=== PATIENT | male | born 2000 ===

== ENCOUNTER 2020-12-31 13:51 | Emergency (ER) | payer OTHER, SELFPAY ==
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
[2020-12-31 14:01] VITALS: BP 139/71; PULSE 89; RESP 18; TEMP 36.3; O2SAT 98; BMI 23.1
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
== END 2020-12-31 16:23 | disposition home or self-care (01) ==
PROVIDERS: Emergency Provider Emergency Medicine
DX: S06.0X0A Concussion without loss of consciousness, initial encounter (principal); V43.62XA Car passenger injured in collision with other type car in traffic accident, initial encounter; G44.319 Acute post-traumatic headache, not intractable; Y93.9 Activity, unspecified; Y92.414 Local residential or business street as the place of occurrence of the external cause; Y99.9 Unspecified external cause status
CPT/HCPCS: 70450; 72125; 99283; 99284

== ENCOUNTER 2022-02-12 16:56 | Emergency (ER) | payer OTHER, SELFPAY ==
--- NOTE | ~2022-02-12 | XR_ITS ---
EXAMINATION: XR SHOULDER, LEFT CLINICAL INFORMATION: Pain. Injury. COMPARISON: None TECHNIQUE: AP external rotated, Grashey, transscapular radiographs of the left shoulder. FINDINGS: Glenohumeral and acromioclavicular joint spacing and alignment are normal in appearance. No dystrophic calcifications or arthropathic changes visualized. The visualized left ribs and lung are normal in appearance. XR/XR shoulder LT min 2V IMPRESSION: Normal radiographs of the left shoulder.
[2022-02-12 17:11] VITALS: BP 153/89; PULSE 79; RESP 18; TEMP 36.6; O2SAT 98; BMI 26.2
--- NOTE | 2022-02-12 18:39 | ED.GENADULT ---
HPI - General Adult General Chief complaint: General Medical Stated complaint: pain in both arms Time Seen by Provider: 02/12/22 18:30 Source: patient Mode of arrival: ambulatory Limitations: no limitations History of Present Illness HPI narrative: 21 yo male healthy here with left shoulder pain x 2 weeks worsened with activity at the gym and today with lifting up his nephew. Pain radiates down the left arm with activity. no numbness, tingling, weakness, fevers, chills. No neck pain or back pain. Patient using a NSAID at home with improvement Patient reports also some right shoulder achiness today after some activity. Tells me he took a tramadol prior to arrival and his pain is is resolved Related Data Previous Rx's Medication Instructions Recorded acetaminophen 300 mg-codeine 30 mg 1 tab PO Q8H PRN #10 tab 12/31/20 tablet cyclobenzaprine 10 mg tablet 10 mg PO TID PRN #14 tab 02/12/22 naproxen 500 mg tablet 500 mg PO BID PRN #30 tab 02/12/22 Allergies Allergy/AdvReac Type Severity Reaction Status Date / Time No Known Allergies Allergy Verified 02/12/22 17:11 [No Known Allergies*] Review of Systems Review of Systems: Yes all other systems are reviewed and are negative Constitutional: Constitutional: Reports no additional constitutional complaints, Denies body ache(s), Denies chills, Denies fever(s), Denies headache(s) and Denies weakness Eyes: Eyes: Reports no additional eye complaints and Denies change in vision ENT: Reports system reviewed and no additional complaints, except as documented, Denies dizziness, Denies headache(s), Denies nasal congestion, Denies nasal discharge and Denies neck pain Cardiovascular: Cardiovascular: Reports no additional cardiovascular complaints, Denies chest pain, Denies leg edema and Denies dyspnea Respiratory: Respiratory: Reports no additional respiratory complaints, Denies cough and Denies dyspnea Gastrointestinal: Gastrointestinal: Reports no additional gastrointestinal complaints, Denies abdominal pain, Denies diarrhea, Denies nausea and Denies vomiting Genitourinary: Genitourinary: Denies urinary incontinence Musculoskeletal: Musculoskeletal: Reports no additional musculoskeletal complaints, Denies back pain, Reports arthralgias, Denies joint swelling, Denies neck pain, Denies numbness and Denies tingling Integumentary/Breasts: Skin/Breast: Reports system reviewed and no additional complaints, except as docu and Denies rash Neurologic: Reports system reviewed and no additional complaints, except as documented, Denies dizziness, Denies headache(s), Denies numbness, Denies tingling and Denies weakness PMFSH Past Medical History Attestation statement: The following information was validated with the patient. Source: old records reviewed and nursing notes reviewed Medical History No known health problems Social History Social History Advance Directives: No Advance Directives Information Provided: Yes Physical Exam ED Vital Signs: Vital Signs - 24 hr 02/12/22 17:11 Temperature 98 F Pulse Rate 79 Respiratory Rate 18 Blood Pressure 153/89 H Pulse Oximetry 98 BMI result Body Mass Index 26.2 Const General: cooperative, healthy appearing, comfortable and no acute distress Orientation/consciousness: patient oriented x3 Limitations: no limitations HENMT Head: Yes normal to inspection Ears: hearing grossly normal bilaterally General nose exam: Normal external nose present Face and sinus: Yes normal facial exam Mouth: Normal oral and palatal mucosa present Throat: Yes posterior oropharynx normal Eyes General: appearance normal, both eyes and all related structures Pupils: Equal, round and reactive pupils present Neck Neck: Yes normal visual inspection and Yes full ROM Chest Chest palpation & inspection: normal inspection of the chest Resp Effort & Inspection: normal respiratory effort Cardio Peripheral pulses: Peripheral pulses 2+ throughout Back/Spine/Pelvis Thoracic/Lumbar Spine: thoracic and lumbar spine normal to inspection Skin General skin exam: no rashes or lesions noted Neuro General: patient oriented x3 and moves all extremities Cranial nerves: Yes Equal, round and reactive pupils present Cognition (Neuro): normal cognition Gait exam (Neuro): Normal gait present Motor exam (neuro): 5/5 motor strength present throughout Sensory Exam: Normal double simultaneous stimulation for sensation Extrem Other: Unable to elicit any pain on exam of the left or right shoulder Full range of motion No weakness Neurovascular intact distally of both extremities Course Course Course Narrative: Left shoulder pain for 2 weeks with no known injury or trauma. Will check x-rays Reevaluation(s) Reevaluation #1: X-ray show no bony abnormality. Likely strain. Recommend rice. Will start low-dose NSAID and muscle relaxant for the next few days. Reviewed worrisome signs and symptoms of when to return to the emergency department. Comfortable discharge home. Time: 21:40 Medical Decision Making MDM Narrative Medical decision making narrative: Sprain, strain Medical Records Medical records reviewed: Yes I reviewed the patient's medical records. Lab Data Lab results reviewed: Yes I reviewed the patient's lab results. Imaging Data shoulder x-ray: Attestation: I personally reviewed and interpreted this imaging study as follows: Radiologist's impression: [address] [address] XRay Report Signed Patient: Blu Soria MR#: [id number] : 2000 Acct:[id number] Age/Sex: 21 / M ADM Date: 02/12/22 Loc: HO.ED Attending Dr: Ordering Physician: June Aguilar NP Date of Service: 02/12/22 Procedure(s): XR shoulder LT min 2V Accession Number(s): [id number] cc: June Aguilar NP~ EXAMINATION: XR SHOULDER, LEFT CLINICAL INFORMATION: Pain. Injury.? COMPARISON: None? TECHNIQUE: AP external rotated, Grashey, transscapular radiographs of the left shoulder. FINDINGS: Glenohumeral and acromioclavicular joint spacing and alignment are normal in appearance. No dystrophic calcifications or arthropathic changes visualized. The visualized left ribs and lung are normal in appearance. XR/XR shoulder LT min 2V IMPRESSION: Normal radiographs of the left shoulder. Discharge Plan Discharge Clinical Impression: Muscle strain of left shoulder region Patient Disposition: Home, Self-Care Instructions: Muscle Strain (DC) Additional Instructions: X-ray show no bony abnormalities. Heat or ice the area Gentle stretching No heavy lifting or bending Follow-up with orthopedics in 7 days for persistent symptoms Prescriptions: New cyclobenzaprine 10 mg tablet 10 mg PO TID PRN (Reason: muscle spasm) Qty: 14 0RF naproxen 500 mg tablet 500 mg PO BID PRN (Reason: pain) Qty: 30 0RF No Action acetaminophen-codeine 300-30 mg tablet 1 tab PO Q8H PRN (Reason: pain) Qty: 10 0RF Referrals: [facility] [place] [facility] Sur[facility] [Provider Group] - 1 week (for persistent symptoms )
== END 2022-02-12 22:29 | disposition home or self-care (01) ==
PROVIDERS: Emergency Provider Internal Medicine
DX: S46.912A Strain of unspecified muscle, fascia and tendon at shoulder and upper arm level, left arm, initial encounter (principal); X50.9XXA Other and unspecified overexertion or strenuous movements or postures, initial encounter; Y93.9 Activity, unspecified; Y92.9 Unspecified place or not applicable; Y99.9 Unspecified external cause status
CPT/HCPCS: 73030; 99283

== ENCOUNTER 2023-05-05 09:47 | Emergency (ER) | payer OTHER, SELFPAY ==
[2023-05-05 10:13] VITALS: BP 173/90; PULSE 84; RESP 16; TEMP 36.4; O2SAT 100; BMI 26.2
[2023-05-05 11:14] LABS: COVID-19 Test Negative (Negative); IDNOW Serial# 08D9AD1C
[2023-05-05 11:20] LABS: IDNOW Serial# 08D9AD1C; Strep A Nucleic Acid Negative (Negative)
--- NOTE | 2023-05-05 11:35 | ED_ITS ---
HPI - General Adult General Chief complaint: General Medical Stated complaint: throat pain Time Seen by Provider: 05/05/23 10:41 Source: patient Mode of arrival: ambulatory Limitations: no limitations History of Present Illness HPI narrative: 22 year old male w/ no significant pmhx presents to the ED today w/ complaints of throat pain x 4 days. He also endorses fever (although never took it), chills, headache, painful tongue bumps, swollen painful tonsils, body aches, and sensitive skin to touch. He states that he had a negative COVID test on Sunday. He denies any recent sick contacts, travel, abdominal pain, nausea, vomiting, sinus pain, ear pain, vision or hearing changes, diarrhea, or urinary changes. He has taken Motrin w/ minimal relief. Denies the use of any OTC cold/flu medications. Onset (ago): day(s) (4) Location: mouth Pain Consistency: constant Relieving factors: none Exacerbating factors: eating Treatments prior to arrival: NSAID Related Data Previous Rx's Medication Instructions Recorded acetaminophen 300 mg-codeine 30 mg 1 tab PO Q8H PRN pain #10 tabs 12/31/20 tablet cyclobenzaprine 10 mg tablet 10 mg PO TID PRN muscle spasm #14 02/12/22 tabs naproxen 500 mg tablet 500 mg PO BID PRN pain #30 tabs 02/12/22 amoxicillin 875 mg-potassium 1 tab PO BID #20 tabs 05/05/23 clavulanate 125 mg tablet Allergies Allergy/AdvReac Type Severity Reaction Status Date / Time No Known Allergies Allergy Verified 05/05/23 10:12 [No Known Allergies*] Review of Systems Review of Systems: Yes all other systems are reviewed and are negative PMFSH Past Medical History Medical History No known health problems Social History Social History Alcohol intake: current Alcohol intake frequency: a few times a month Smoked in Last 30 Days: No Use of substances other than those prescribed or required for medical reasons: No Advance Directives: No Advance Directives Information Provided: No Physical Exam ED Vital Signs: Vital Signs - 24 hr 05/05/23 10:13 05/05/23 11:59 Temperature 97.5 F 99.0 F Pulse Rate 84 84 Respiratory Rate 16 16 Blood Pressure 173/90 H 140/92 H Pulse Oximetry 100 99 Oxygen Delivery Method Room Air Room Air BMI result Body Mass Index 26.2 Const Other: Appearance: Alert. Oriented X3. No acute distress. Head: normocephalic, atraumatic. Eyes: Pupils equal, round and reactive to light. ENT: (+) tonsilar swelling, erythema, and exudate. Uvula midline, normal voice. Raised lesions on tongue. TM's normal bilaterally. Neck: Enlarged/tender submandibular lymphadenopathy. Neck supple. CVS: Normal heart rate and rhythm. Pulses normal. Respiratory: No respiratory distress. Breath sounds normal. Abdomen: Soft and nontender. +BS x4 Skin: Skin warm and dry. Normal skin color. Normal skin turgor. No rashes. Extremities: No lower extremity edema. No joint swelling. Neuro/psych: Oriented X 3. No motor deficit. No sensory deficit. CN II-XII intact. Normal speech and cognition. Medications Administered Discontinued Medications Generic Name Dose Route Start Last Admin Trade Name Freq PRN Reason Stop Dose Admin Acetaminophen 975 mg 05/05/23 12:02 05/05/23 12:12 Acetaminophen 325 Mg Tablet PO 05/05/23 12:03 975 mg ONCE ONE Administration Benzocaine 1 lozenge 05/05/23 12:02 05/05/23 12:13 Throat Lozenge, Medicated Lozenge MUCOUS MEM 05/05/23 12:03 1 lozenge ONCE ONE Administration Dexamethasone 10 mg 05/05/23 12:02 05/05/23 12:12 Dexamethasone 2 Mg Tablet PO 05/05/23 12:03 10 mg ONCE ONE Administration Ibuprofen 600 mg 05/05/23 12:02 05/05/23 12:12 Ibuprofen 600 Mg Tablet PO 05/05/23 12:03 600 mg ONCE ONE Administration Lidocaine/Diphenhydr/Alum/Mg/Simeth 10 ml 05/05/23 12:02 05/05/23 12:12 Mag&Al/Sim/Diphenhyd/Lidocaine 10 Ml Oral.Susp PO 05/05/23 12:03 10 ml ONCE ONE Administration Protocol Medical Decision Making Medical Decision Making MDM Narrative: 22 year old male w/ no significant pmhx presents to the ED today w/ complaints of throat pain x 4 days. On exam he is hypertensive secondary to his pain/discomfort, NAD, no red flag symptoms (drooling, hot potato voice, tripod positioning), no signs of trauma or injury. Likely, infectious mononucleosis vs. strep throat. Unlikely, peritonsilar abscess, retropharyngeal abscess, thrush, COVID, or epiglottitis. Plan: COVID, Strep throat swabs, labs, Antibiotics if infectious in nature, Tylenol/NSAIDs, steroids, magic mouthwash, supportive care, f/u w/ PCP Differential Diagnosis Differential Diagnoses: The differential diagnosis associated with the presentation includes peritonsilar abscess, Strep throat, thrush, COVID, or epiglottitis. Lab Data MDM Lab Attestation statement: I reviewed the patient's lab results. No leukocytosis, negative mononucleosis 05/05/23 11:56 05/05/23 11:56 Labs: Lab Results 05/05/23 05/05/23 05/05/23 Range/Units 10:47 11:04 11:56 WBC (4.8-10.8) X10*3/uL RBC (4.60-5.80) X10*6/uL Hgb (14.0-18.0) g/dl Hct (42.0-52.0) % MCV (80.0-98.0) fL MCH (27.0-33.0) pg MCHC (31.0-36.0) g/dl RDW (11.0-16.0) % Plt Count (160-400) X10*3/uL MPV (9.4-12.4) fL Immature Gran % (Auto) (0.0-0.4) % Neut % (Auto) (45-73) % Lymph % (Auto) (20-40) % [place] % (Auto) (2-11) % Eos % (Auto) (0-4) % Baso % (Auto) (0-2) % Lymph # (Auto) (1.2-4.9) X10*3/uL [place] # (Auto) (0.1-1.2) X10*3/uL Eos # (Auto) (0.0-0.4) X10*3/uL Baso # (Auto) (0.0-0.2) X10*3/uL Abs Immat Gran (auto) (0.00-0.03) X10*3/uL Absolute Neuts (auto) (2.0-8.3) x10*3/uL Absolute Nucleated RBC (0.0-0.012) X10*3/uL Nucleated RBC % (auto) (0.0-0.2) /100WBC Sodium (135-145) mmol/L Potassium (3.3-5.1) mmol/L Chloride (96-108) mmol/L Carbon Dioxide (22-29) mmol/L Anion Gap (12-20) BUN (9-16) mg/dL Creatinine (0.5-1.4) mg/dL Estim Creat Clear Calc Estimated GFR Random Glucose (60-115) mg/dL Calcium (8.4-10.2) mg/dL COVID-19 ([place]) Negative (Negative) COVID-19 Clin Com See Note Monoscreen Negative (Negative) S. pyogenes GrpA TEJAL Negative (Negative) 05/05/23 05/05/23 Range/Units 11:56 11:56 WBC 10.2 (4.8-10.8) X10*3/uL RBC 5.39 (4.60-5.80) X10*6/uL Hgb 16.8 (14.0-18.0) g/dl Hct 47.7 (42.0-52.0) % MCV 88.5 (80.0-98.0) fL MCH 31.2 (27.0-33.0) pg MCHC 35.2 (31.0-36.0) g/dl RDW 12.1 (11.0-16.0) % Plt Count 143 L (160-400) X10*3/uL MPV 10.7 (9.4-12.4) fL Immature Gran % (Auto) 0.4 (0.0-0.4) % Neut % (Auto) 66.8 (45-73) % Lymph % (Auto) 19.6 L (20-40) % [place] % (Auto) 12.1 H (2-11) % Eos % (Auto) 0.9 (0-4) % Baso % (Auto) 0.2 (0-2) % Lymph # (Auto) 2.0 (1.2-4.9) X10*3/uL [place] # (Auto) 1.2 (0.1-1.2) X10*3/uL Eos # (Auto) 0.1 (0.0-0.4) X10*3/uL Baso # (Auto) 0.0 (0.0-0.2) X10*3/uL Abs Immat Gran (auto) 0.04 H (0.00-0.03) X10*3/uL Absolute Neuts (auto) 6.8 (2.0-8.3) x10*3/uL Absolute Nucleated RBC 0.000 (0.0-0.012) X10*3/uL Nucleated RBC % (auto) 0.0 (0.0-0.2) /100WBC Sodium 138 (135-145) mmol/L Potassium 4.3 (3.3-5.1) mmol/L Chloride 102 (96-108) mmol/L Carbon Dioxide 27 (22-29) mmol/L Anion Gap 13 (12-20) BUN 10 (9-16) mg/dL Creatinine 1.03 (0.5-1.4) mg/dL Estim Creat Clear Calc 133.3 Estimated GFR > 60 Random Glucose 94 (60-115) mg/dL Calcium 9.5 (8.4-10.2) mg/dL COVID-19 ([place]) (Negative) COVID-19 Clin Com Monoscreen (Negative) S. pyogenes GrpA TEJAL (Negative) Tests considered The following testing was considered but not selected: CT scan of the neck but given the bilateral involvement, and lack of uvula deviation unlikely bilateral peritonsilar abscess. Will defer for now. Prescription Management I considered prescription management with: Pain Medication, Antibiotic and Other (steroids) Critical Care Time Critical Care Time Critical Care Time: No Discharge Plan Discharge Clinical Impression: Pharyngitis Patient Disposition: Home, Self-Care Instructions: Pharyngitis (ED) Additional Instructions: Your lab workup was unremarkable. You tested negative for strep throat, COVID, and mononucleosis. Given your examination and symptoms we are treating you for strep throat. Take the prescribed antibiotics as directed, complete the entire course and do not miss any doses Recommend warm saltwater gargles 3 times per day. Recommend [id number] Chloraseptic spray or Cepacol lozenges for sore throat Take Motrin and Tylenol around the clock If you develop new or worsening symptoms call 911 or come back to the ER for further evaluation. Prescriptions: New amoxicillin-pot clavulanate 875-125 mg tablet 1 tab PO BID Qty: 20 0RF No Action acetaminophen-codeine 300-30 mg tablet 1 tab PO Q8H PRN (Reason: pain) Qty: 10 0RF cyclobenzaprine 10 mg tablet 10 mg PO TID PRN (Reason: muscle spasm) Qty: 14 0RF naproxen 500 mg tablet 500 mg PO BID PRN (Reason: pain) Qty: 30 0RF Stand Alone Forms: Work/School Release Discharge Date/Time: 05/05/23 13:33
[2023-05-05 11:59] VITALS: BP 140/92; PULSE 84; RESP 16; TEMP 37.2; O2SAT 99
[2023-05-05 12:00] LABS: MANUAL DIFF FLAG NO
[2023-05-05 12:04] LABS: Basophils Percent Auto 0.2 % (0-2); Eosinophils Absolute Auto 0.1 X10*3/uL (0.0-0.4); Eosinophils Percent Auto 0.9 % (0-4); Hematocrit 47.7 % (42.0-52.0); Hemoglobin 16.8 g/dl (14.0-18.0); Imm Gran Abs Auto 0.04 X10*3/uL (0.00-0.03); Imm Gran Pct Auto 0.4 % (0.0-0.4); Lymphocytes Percent Auto 19.6 % (20-40); Mean Corpuscular HGB Conc 35.2 g/dl (31.0-36.0); Mean Corpuscular Hemoglobin 31.2 pg (27.0-33.0); Mean Corpuscular Volume 88.5 fL (80.0-98.0); Mean Platelet Volume 10.7 fL (9.4-12.4); Monocytes Absolute Auto 1.2 X10*3/uL (0.1-1.2); Monocytes Percent Auto 12.1 % (2-11); Neutrophils Absolute Auto 6.8 x10*3/uL (2.0-8.3); Neutrophils Percent Auto 66.8 % (45-73); Platelet Count 143 X10*3/uL (160-400); Red Blood Count 5.39 X10*6/uL (4.60-5.80); Red Cell Distribution Width 12.1 % (11.0-16.0); White Blood Count 10.2 X10*3/uL (4.8-10.8)
[2023-05-05] MEDS: Mag&Al/Sim/Diphenhyd/Lidocaine 10 ML ORAL.SUSP PO (12:12)
[2023-05-05] MEDS: Acetaminophen 325 MG TABLET 975 MG PO (12:12)
[2023-05-05] MEDS: Ibuprofen 600 MG TABLET PO (12:12)
[2023-05-05] MEDS: dexAMETHasone 2 MG TABLET 10 MG PO (12:12)
[2023-05-05] MEDS: Throat Lozenge, Medicated LOZENGE 1 LOZENGE MUCOUS MEM (12:13)
[2023-05-05 12:19] LABS: Anion Gap 13 (12-20); Blood Urea Nitrogen 10 mg/dL (9-16); Calcium 9.5 mg/dL (8.4-10.2); Carbon Dioxide 27 mmol/L (22-29); Chloride 102 mmol/L (96-108); Creatinine Clr Calc Pharmacy 133.3; Estimated Glomerular Filt Rate > 60; Glucose Random 94 mg/dL (60-115); Potassium 4.3 mmol/L (3.3-5.1); Sodium 138 mmol/L (135-145)
[2023-05-05 12:28] LABS: Monotest Negative (Negative)
--- NOTE | 2023-05-05 12:38 | PC.NURSE ---
resting in bed w/no respiratory distress. airway intact.
--- NOTE | 2023-05-05 13:29 | MHC.EDTECH ---
Brought patient a pillow.
== END 2023-05-05 13:33 | disposition home or self-care (01) ==
PROVIDERS: Physician Assistant; Emergency Provider Emergency Medicine Emergency Medical Services
DX: J02.9 Acute pharyngitis, unspecified (principal); R50.9 Fever, unspecified; Z20.822 Contact with and (suspected) exposure to COVID-19
CPT/HCPCS: 36415; 80048; 85025; 86308; 87635; 87651; 99283; 99284; J8540

== ENCOUNTER 2024-07-22 10:35 | Inpatient (IN) | payer OTHER, SELFPAY ==
[2024-07-22] VITALS (11 sets, daily range): BP systolic 123–158; BP diastolic 60–79; PULSE 88–115; RESP 12–20; TEMP 36.7–37.6; O2SAT 99–100; BMI 25.6
--- NOTE | ~2024-07-22 | CT_ITS ---
EXAMINATION: CT ABDOMEN AND PELVIS WITH AND WITHOUT CONTRAST: CT GI BLEEDING STUDY CLINICAL INFORMATION: anemia, brbpr, diarrhea, N/V. COMPARISON: None available TECHNIQUE: Multidetector volumetric imaging was performed from the lung bases to the pubic symphysis before and after the administration of: Intravenous contrast: 85 mL Omnipaque 350 2 sets of post contrast images were performed one during the arterial phase and another after a 2 minute delay to assess for extravasation into bowel lumen No contrast reaction reported MIP coronal, sagittal and coronal reformatted images were obtained on the technologist workstation. This CT examination was performed using dose optimization techniques as appropriate, variously including the following: *Automated exposure control *Adjustment of mA and/or kV according to patient size (this includes techniques or standardized protocols for targeted exams where dose is matched to indication/reason for exam; i.e. extremities or head) *Use of iterative reconstruction technique Total exam dose-length product 1363 mGy-cm FINDINGS: STOMACH: No abnormal wall thickening or mass. No intraluminal contrast accumulation to suggest hemorrhage. SMALL BOWEL: No abnormal wall thickening or dilation. No intraluminal contrast accumulation to suggest hemorrhage. COLON: No intraluminal contrast accumulation to suggest hemorrhage. No colonic wall thickening or pericolonic inflammatory changes. Few scattered diverticula without evidence of diverticulitis. Normal appendix. LUNG BASES: No nodules, mass, or focal consolidation. PLEURA: No pleural effusion. LIVER, GALLBLADDER, AND BILIARY TREE: The liver is normal in size, shape, and attenuation. No focal hepatic lesion or biliary ductal dilatation is present. The gallbladder is unremarkable with no evidence of radiopaque gallstones, gallbladder wall thickening, or obvious pericholecystic inflammatory changes. PANCREAS: Normal; no mass or surrounding fluid. SPLEEN: Normal size. No focal lesion. ADRENAL GLANDS: Normal; no mass. KIDNEYS AND URETERS: The kidneys are normal in size, shape, and attenuation. No hydronephrosis, hydroureter, or calculi. ABDOMINAL WALL: No hernia seen. LYMPHOVASCULAR STRUCTURES: No lymphadenopathy. The aorta is normal in caliber. BLADDER: The bladder is empty but otherwise unremarkable. No bladder calculi. PELVIC VISCERA: Unremarkable. OSSEOUS STRUCTURES: No acute or suspicious osseous abnormality. CT/CT gi bleed abd pel wo/w IVcon IMPRESSION: No evidence of active gastrointestinal hemorrhage at the time of the scan. Electronically signed by: Rafael Inman MD 07/22/2024 04:00 PM EDT RP
[2024-07-22 10:55] LABS: MANUAL DIFF FLAG NO
[2024-07-22 11:08] LABS: Basophils Absolute Auto 0.1 X10*3/uL (0.0-0.2); Basophils Percent Auto 0.4 % (0-2); Eosinophils Absolute Auto 0.5 X10*3/uL (0.0-0.4); Eosinophils Percent Auto 3.3 % (0-4); Imm Gran Abs Auto 0.15 X10*3/uL (0.00-0.03); Imm Gran Pct Auto 1.1 % (0.0-0.4); Lymphocytes Absolute Auto 3.3 X10*3/uL (1.2-4.9); Lymphocytes Percent Auto 24.1 % (20-40); Mean Corpuscular HGB Conc 36.4 g/dl (31.0-36.0); Mean Corpuscular Hemoglobin 32.4 pg (27.0-33.0); Mean Corpuscular Volume 88.9 fL (80.0-98.0); Mean Platelet Volume 11.1 fL (9.4-12.4); Monocytes Absolute Auto 1.4 X10*3/uL (0.1-1.2); Monocytes Percent Auto 10.4 % (2-11); Neutrophils Absolute Auto 8.3 x10*3/uL (2.0-8.3); Neutrophils Percent Auto 60.7 % (45-73); Platelet Count 187 X10*3/uL (160-400); Red Blood Count 2.07 X10*6/uL (4.60-5.80); Red Cell Distribution Width 13.2 % (11.0-16.0); White Blood Count 13.7 X10*3/uL (4.8-10.8)
[2024-07-22 11:12] LABS: Hematocrit 18.4 % (42.0-52.0); Hemoglobin 6.7 g/dl (14.0-18.0)
[2024-07-22 11:24] LABS: Anion Gap 9 (12-20); Blood Urea Nitrogen 10 mg/dL (9-16); Calcium 8.5 mg/dL (8.4-10.2); Carbon Dioxide 26 mmol/L (22-29); Chloride 106 mmol/L (96-108); Creatinine Clr Calc Pharmacy 120.5; Estimated Glomerular Filt Rate > 60; Glucose Random 106 mg/dL (60-115); Potassium 3.6 mmol/L (3.3-5.1); Sodium 137 mmol/L (135-145)
--- NOTE | 2024-07-22 11:30 | PC.NURSE ---
patient a&ox3, vss, livestock feeder applied, nsr on monitor, iv inserted, labs previously drawn in triage, pt to go to ct scan, pt denying pain/discomfort, provider to perform rectal exam. family at bedside, will continue to monitor.
--- NOTE | 2024-07-22 11:42 | ED_ITS ---
HPI - General Adult General Chief complaint: Nausea/Vomiting/Diarrhea Stated complaint: Vomiting, diarrhea Time Seen by Provider: 07/22/24 11:41 Source: patient Mode of arrival: ambulatory Limitations: no limitations History of Present Illness ED Provider: Dr. Bert Cho HPI narrative: 24-year-old male with no significant past medical history on no medications, takes no [id number] medications, presents emergency department for evaluation of bloody diarrhea, weakness, lightheadedness and dizziness. The patient states that on Sunday night (07/18/2024) at around 22:00 hours he purchased bread sticks from [employer] he states that the bread sticks were raw your for he put them in the abdomen and cook them. Then at 02:00 hours on Sunday (07/17/2025) he developed severe diarrhea. He states that he had over 20 episodes of bloody stools. He states that his stools have not come back to normal and are soft with no noticeable blood. He was moving his bowels 3 to 4 times a day. Patient states that he was feeling weak, lightheaded as if he was going to pass out. He denies any dyspnea on exertion or shortness of breath at rest. He states he was felt hot and cold but did not check his temperature. Patient was never had bloody diarrhea in the past. He denied abdominal pain. Related Data Home Medications ?Medication ?Instructions ?Recorded ?Confirmed No Known Home Meds 07/22/24 07/22/24 Allergies Allergy/AdvReac Type Severity Reaction Status Date / Time No Known Allergies Allergy Verified 07/22/24 10:43 [No Known Allergies*] Review of Systems 2 Review of Systems: Yes all other systems are reviewed and are negative [facility] [place] Past Medical History [facility] [place] [facility] Narrative: Social history: He denies tobacco, alcohol and drug use Medical History No known health problems Social History Social History Alcohol intake: current Alcohol intake frequency: a few times a month Smoked in Last 30 Days: No Use of substances other than those prescribed or required for medical reasons: No Advance Directives: No Advance Directives Information Provided: Yes Do you have a plan to hurt others: No Plan Physical Exam ED Vital Signs: Vital Signs - 24 hr 10/29/24 10:40 07/22/24 12:59 07/22/24 13:57 Temperature 99.6 F 98.1 F 98.2 F Pulse Rate 98 100 100 Respiratory Rate 16 18 12 Blood Pressure 158/79 H 137/76 130/75 Pulse Oximetry 100 99 100 Oxygen Delivery Method Room Air Room Air Room Air 07/22/24 14:21 07/22/24 14:36 Temperature 98.2 F 98.9 F Pulse Rate 115 H 99 Respiratory Rate 18 18 Blood Pressure 140/68 H 123/67 Pulse Oximetry Oxygen Delivery Method BMI result Body Mass Index 25.6 Vital signs revealed an elevated blood pressure of 158/79 otherwise unremarkable Exam: General: Awake, alert in no distress Head: Normocephalic, atraumatic EENT: PERRL, Lids normal, sclera normal, conjunctiva normal, nose normal , ears normal, throat without erythema or exudates Neck: Supple, no adenopathy Lung: breath sounds symmetric, no wheezing, rales or rhonchi Chest: symmetric movement, nontender Heart: regular rate and rhythm, normal S1, S2 no murmurs or rubs Abdomen: soft, non-tender, nondistended, normal bowel sounds Rectal: No external hemorrhoids, rectal tone was normal, no masses on digital exam, stool was dark brown and strongly Hemoccult positive Back: no vertebral tenderness, no CVAT Extremities: no deformities, moves all extremities symmetrically Neuro: Awake, alert, oriented, normal speech, cranial nerves intact, moves all extremities symmetrically Psych: Pleasant, cooperative Medications Administered Generic Name Dose Route Start Last Admin Trade Name Freq PRN Reason Stop Dose Admin Magnesium Sulfate 2 gm in 50 mls @ 25 mls/hr 07/22/24 16:39 07/22/24 17:02 Magnesium Sulfate/H2o IV 07/22/24 18:38 25 mls/hr ONCE ONE Administration Pantoprazole Sodium 40 mg 07/22/24 16:55 07/22/24 17:18 Pantoprazole Sodium 40 Mg/10 Ml Vial IVPUSH 40 mg BID@0630,1630 PABLITO Administration Discontinued Medications Generic Name Dose Route Start Last Admin Trade Name Freq PRN Reason Stop Dose Admin Iohexol 85 ml 07/22/24 13:23 07/22/24 13:23 Iohexol 350 Mg/Ml 100 Ml Infus..Btl IV 07/22/24 13:24 85 ml ONCE ONE Administration Medical Decision Making Medical Decision Making MDM Narrative: 24-year-old male with no significant past medical history who presents emergency department for evaluation of sudden onset of bloody stools 4 days prior with over 20 episodes initially and now continues to have loose stools with no blood. Patient was feeling weak, lightheaded, dizzy and had subjective fever and chills. Vital signs revealed an elevated blood pressure otherwise unremarkable. Physical exam revealed no abdominal tenderness, patient had stool which was dark brown and strongly Hemoccult positive. Differential diagnosis: ?Includes but is not limited to inflammatory bowel disease (ulcerative colitis, Crohn's disease), infectious diarrhea (bacterial, viral, parasitic), C difficile colitis Following tests were ordered: CBC, BNP, liver panel, GI panel, C difficile, magnesium, occult stool, urinalysis, CT GI bleed protocol abdomen pelvis with IV contrast Course: 12:19 My interpretation patient's laboratory evaluation as follows: Elevated white blood count 68325 with a normal differential. Anemia with an H&H of 16.7 and 18.4. Platelet count was normal 187,000. BUN and creatinine were normal 10 in 1.15. LFTs were normal. Bilirubin was normal. Total protein and albumin were low 5.6 and 3.3. Lipase was normal. 13:46 Repeat H&H was 6.4 and 17.9 at 12:28 hours confirms that the patient is anemic. Patient was ordered to get 2 units of packed red blood cells each over 1-2 hours. We will repeat H&H after transfusion. CT abdomen pelvis GI protocol is pending. I will discuss patient with on-call GI , Dr. Polk 16:18 CT scan abdomen pelvis GI protocol did not reveal any active bleeding or any other abnormalities to explain the patient's lower GI bleed. I did discuss the patient's presentation with the hospitalist, Dr. Rivera and the patient will be admitted for further treatment. Admission/Observation Consideration of admission/observation: Escalation of care including admission/observation considered (Yes) Lab Data 07/22/24 12:28 07/22/24 10:51 Labs: Lab Results 07/22/24 07/22/24 07/22/24 Range/Units 10:51 11:27 12:28 WBC 13.7 H (4.8-10.8) X10*3/uL RBC 2.07 L D (4.60-5.80) X10*6/uL Hgb 6.7 L* D 6.4 L* (14.0-18.0) g/dl Hct 18.4 L* D 17.9 L* (42.0-52.0) % MCV 88.9 (80.0-98.0) fL MCH 32.4 (27.0-33.0) pg MCHC 36.4 H (31.0-36.0) g/dl RDW 13.2 (11.0-16.0) % Plt Count 187 D (160-400) X10*3/uL MPV 11.1 (9.4-12.4) fL Immature Gran % (Auto) 1.1 H (0.0-0.4) % Neut % (Auto) 60.7 (45-73) % Lymph % (Auto) 24.1 (20-40) % [place] % (Auto) 10.4 (2-11) % Eos % (Auto) 3.3 (0-4) % Baso % (Auto) 0.4 (0-2) % Lymph # (Auto) 3.3 (1.2-4.9) X10*3/uL [place] # (Auto) 1.4 H (0.1-1.2) X10*3/uL Eos # (Auto) 0.5 H (0.0-0.4) X10*3/uL Baso # (Auto) 0.1 (0.0-0.2) X10*3/uL Abs Immat Gran (auto) 0.15 H (0.00-0.03) X10*3/uL Absolute Neuts (auto) 8.3 (2.0-8.3) x10*3/uL Absolute Nucleated RBC 0.000 (0.0-0.012) X10*3/uL Nucleated RBC % (auto) 0.0 (0.0-0.2) /100WBC Sodium 137 (135-145) mmol/L Potassium 3.6 (3.3-5.1) mmol/L Chloride 106 (96-108) mmol/L Carbon Dioxide 26 (22-29) mmol/L Anion Gap 9 L (12-20) BUN 10 (9-16) mg/dL Creatinine 1.15 (0.5-1.4) mg/dL Estim Creat Clear Calc 120.5 Estimated GFR > 60 Random Glucose 106 (60-115) mg/dL Calcium 8.5 D (8.4-10.2) mg/dL Magnesium 1.5 L (1.6-2.6) mg/dL Iron 21 L (45-160) mcg/dL TIBC 253 (228-428) mcg/dL % Saturation 8 L (15-50) % Unsat Iron Binding 232 ug/dL Total Bilirubin 0.2 (0.0-1.0) mg/dL Direct Bilirubin < 0.2 (0.0-0.5) mg/dL AST 22 (5-37) U/L ALT 13 (0-40) U/L Alkaline Phosphatase 45 (39-117) U/L Lactate Dehydrogenase 136 (118-273) U/L Total Protein 5.6 L (6.5-8.0) g/dL Albumin 3.3 L (3.5-5.0) g/dL Lipase 23 (8-78) U/L Urine Color Urine Appearance Urine pH (5.0-9.0) Ur Specific [place] (1.005-1.025) Urine Protein (Neg-Trace) mg/dL Urine Glucose (UA) (Negative) mg/dL Urine Ketones (Negative) mg/dL Urine Blood (Negative) Urine Nitrite (Negative) Ur Leukocyte Esterase (Negative) Urine RBC (0-2) /HPF Urine WBC (0-5) /HPF Ur Squamous Epith Cells (0-2) /HPF Urine Bacteria (None Seen) Hyaline Casts (0-2) /LPF Stool Occult Blood (NEGATIVE) Influenza Type A (PCR) (Negative) Influenza Type B (PCR) (Negative) RSV RNA Qual (PCR) (Negative) SARS-CoV-2 RNA (RT-PCR) (Negative) Blood Type A Negative Antibody Screen NEGATIVE ORI, Polyspecific NEGATIVE Positive ORI Work-up TNP Crossmatch See Detail 07/22/24 07/22/24 07/22/24 Range/Units 13:04 13:21 13:59 WBC (4.8-10.8) X10*3/uL RBC (4.60-5.80) X10*6/uL Hgb (14.0-18.0) g/dl Hct (42.0-52.0) % MCV (80.0-98.0) fL MCH (27.0-33.0) pg MCHC (31.0-36.0) g/dl RDW (11.0-16.0) % Plt Count (160-400) X10*3/uL MPV (9.4-12.4) fL Immature Gran % (Auto) (0.0-0.4) % Neut % (Auto) (45-73) % Lymph % (Auto) (20-40) % [place] % (Auto) (2-11) % Eos % (Auto) (0-4) % Baso % (Auto) (0-2) % Lymph # (Auto) (1.2-4.9) X10*3/uL [place] # (Auto) (0.1-1.2) X10*3/uL Eos # (Auto) (0.0-0.4) X10*3/uL Baso # (Auto) (0.0-0.2) X10*3/uL Abs Immat Gran (auto) (0.00-0.03) X10*3/uL Absolute Neuts (auto) (2.0-8.3) x10*3/uL Absolute Nucleated RBC (0.0-0.012) X10*3/uL Nucleated RBC % (auto) (0.0-0.2) /100WBC Sodium (135-145) mmol/L Potassium (3.3-5.1) mmol/L Chloride (96-108) mmol/L Carbon Dioxide (22-29) mmol/L Anion Gap (12-20) BUN (9-16) mg/dL Creatinine (0.5-1.4) mg/dL Estim Creat Clear Calc Estimated GFR Random Glucose (60-115) mg/dL Calcium (8.4-10.2) mg/dL Magnesium (1.6-2.6) mg/dL Iron (45-160) mcg/dL TIBC (228-428) mcg/dL % Saturation (15-50) % Unsat Iron Binding ug/dL Total Bilirubin (0.0-1.0) mg/dL Direct Bilirubin (0.0-0.5) mg/dL AST (5-37) U/L ALT (0-40) U/L Alkaline Phosphatase (39-117) U/L Lactate Dehydrogenase (118-273) U/L Total Protein (6.5-8.0) g/dL Albumin (3.5-5.0) g/dL Lipase (8-78) U/L Urine Color Yellow Urine Appearance Cloudy Urine pH 5.5 (5.0-9.0) Ur Specific [place] >= 1.030 H (1.005-1.025) Urine Protein 30 (1+) H (Neg-Trace) mg/dL Urine Glucose (UA) Negative (Negative) mg/dL Urine Ketones Trace (Negative) mg/dL Urine Blood Negative (Negative) Urine Nitrite Negative (Negative) Ur Leukocyte Esterase Small (1+) H (Negative) Urine RBC 0-2 (0-2) /HPF Urine WBC 21-50 H (0-5) /HPF Ur Squamous Epith Cells 0-2 (0-2) /HPF Urine Bacteria None Seen (None Seen) Hyaline Casts 0-2 (0-2) /LPF Stool Occult Blood POSITIVE (NEGATIVE) Influenza Type A (PCR) NEGATIVE (Negative) Influenza Type B (PCR) NEGATIVE (Negative) RSV RNA Qual (PCR) NEGATIVE (Negative) SARS-CoV-2 RNA (RT-PCR) NEGATIVE (Negative) Blood Type Antibody Screen ORI, Polyspecific Positive ORI Work-up Crossmatch Independent Interpretation I performed an independent interpretation of an: EKG Radiology Impression Discussion of test interpretation with radiology: I have reviewed the radiologist's reading. Radiologist Impression: CT gi bleed abd pel wo/w IVcon IMPRESSION: No evidence of active gastrointestinal hemorrhage at the time of the scan. Electronically signed by: Rafael Inman MD 07/22/2024 04:00 PM Critical Care Time Critical Care Time Critical Care Time: Yes Total Critical Care Time: 45 Attestation: Critical Care: The patient was critically ill with a high probability of imminent or life threatening deterioration. I spent greater than 30 minutes of discontinuous time evaluating the patient,delivering critical care at the bedside, discussing and evaluating pertinent data with consultants. Critical care time does not include time spent performing separately billable procedures or teaching. Total time spent performing critical care was 45 minutes. Discharge Plan Discharge Clinical Impression: Acute blood loss anemia, Acute lower gastrointestinal bleeding Patient Disposition: Admitted As Inpatient
[2024-07-22 11:56] LABS: Alanine Aminotransferase 13 U/L (0-40); Albumin Level 3.3 g/dL (3.5-5.0); Alkaline Phosphatase 45 U/L (39-117); Aspartate Amino Transferase 22 U/L (5-37); Bilirubin Direct < 0.2 mg/dL (0.0-0.5); Bilirubin Total 0.2 mg/dL (0.0-1.0); Lipase 23 U/L (8-78); Magnesium 1.5 mg/dL (1.6-2.6); Total Protein 5.6 g/dL (6.5-8.0)
[2024-07-22 12:47] LABS: Hemoglobin 6.4 g/dl (14.0-18.0)
[2024-07-22 12:48] LABS: Hematocrit 17.9 % (42.0-52.0)
[2024-07-22] MEDS: iohexoL 350 MG/ML 100 ML INFUS..BTL 85 ML IV (13:23)
[2024-07-22 13:31] LABS: Appearance Urine Cloudy; Color Urine Yellow; Glucose Urine UA Negative (Negative); Leukocyte Esterase Urine Small (1+) (Negative); Nitrite Urine Negative (Negative); PH 5.5 (5.0-9.0); Specific Gravity - Urine >= 1.030 (1.005-1.025); UMIC TRIGGER UACC YES; Urine Blood Negative (Negative); Urine Ketones Trace mg/dL (Negative); Urine Protein 30 (1+) mg/dL (Neg-Trace)
[2024-07-22 13:36] LABS: Iron 21 mcg/dL (45-160); Percent Iron Saturation 8 % (15-50); Total Iron Binding Capacity 253 mcg/dL (228-428); Unsaturated Iron Binding 232 ug/dL
[2024-07-22 13:37] LABS: Bacteria Urine None Seen (None Seen); Hyaline Casts Urine 0-2 /LPF (0-2); RBC Urine 0-2 /HPF (0-2); Squamous Epithelial Cell Urine 0-2 /HPF (0-2); UACC Culture Trigger YES; WBC Urine 21-50 /HPF (0-5)
[2024-07-22 13:51] LABS: Influenza A PCR NEGATIVE (Negative); Influenza B PCR NEGATIVE (Negative); Resp Syncy Virus RNA Qual PCR NEGATIVE (Negative); SARS COV2 PCR INHOUSE NEGATIVE (Negative)
[2024-07-22 14:04] LABS: OBS Int Ctl Valid YES; OBS1 POSITIVE (NEGATIVE)
--- NOTE | 2024-07-22 14:26 | PC.NURSE ---
pt a&ox3, vss, repeat labs drawn, blood consent signed and blood picked up, blood transfusion started per orders, front desk monitor remains nsr. family at bedside, will continue plan of care
[2024-07-22 14:35] LABS: Lactate Dehydrogenase 136 U/L (118-273)
--- NOTE | 2024-07-22 14:38 | PC.NURSE ---
pt a&ox3, tolerating blood well, vss, phototypesetting equipment monitor nsr, will continue with plan of care.
--- NOTE | 2024-07-22 15:48 | PM.IMHP ---
History of Present Illness Date of Service: 07/22/24 Attending physician on admission: Rodolfo Rivera Chief Complaint: Bloody diarrhea Pt is a 24-year-old male with no reported significant PMH not on home medications who presents to the ED with?bloody diarrhea x3 days. Pt reports was in his normal state of health on Sunday evening when he ordered some bread sticks from [email or web address] at 22:00. When they arrived pt found them to be cold and undercooked, almost raw. Put then in the oven for 10 minutes and them ate them. A few hours later pt was awoken at 02:00 with diarrhea. Bowel movements were at 1st brown in color, but soon became red with both bright red and dark red blood. Patient reports was in the bathroom all day Sunday with 30-40+ episodes of bloody diarrhea. One episode of non-bloody vomiting at around 06:00 on Sunday morning. No additional N/V. Denies abdominal pain. Diarrhea and bloody stools stopped by Sunday, though stool has been soft and less formed than normal. Has been having 3-4 bowel movements on Sunday and Sunday with last bowel movement was yesterday evening. Pt has been experiencing lightheadedness, weakmess, subjective fevers, and headache. Did not present earlier since he thought he had food poisoning that was now resolved. Presents today at the urging of his mother and girlfriend. Denies shortness a breath, DAVIDSON. No chest pain/pressure, palpitations. Denies NSAID use. Currently only complaint is a headache. In the ED pt with low-grade fever of 99.6, tachycardia up to 115, and hypertensive up to 158/79. Labs were significant for leukocytosis 13.7, H&H 6.7/18.4 with repeat 6.4/17.9, magnesium 1.5, iron 21, and iron 8% saturation. Stool positive for occult blood. UA positive leukocyte esterase and wbc's 21 through 50, negative for bacteria. Tested negative for flu, RSV, and COVID. CT GI bleeding study negative for active gastrointestinal hemorrhage. In the ED patient was transfused 2 units PRBCs. Pt will be admitted to the hospital for treatment and further evaluation of acute blood loss anemia likely secondary to LGIB of unclear etiology. Review of Systems Review of Systems: Yes all other systems are reviewed and are negative PMFSH Medical History No known health problems Social History Alcohol intake: current Alcohol intake frequency: a few times a month Smoked in Last 30 Days: No Use of substances other than those prescribed or required for medical reasons: No Advance Directives: No Advance Directives Information Provided: Yes Do you have a plan to hurt others: No Plan Meds Allergies Allergy/AdvReac Type Severity Reaction Status Date / Time No Known Allergies Allergy Verified 07/22/24 10:43 [No Known Allergies*] Home Medications ?Medication ?Instructions ?Recorded ?Confirmed ?Last Taken ?Type No Known Home Meds 07/22/24 07/22/24 Unknown History Physical Exam Vital Signs and Narrative: Vital Signs: Last Vital Signs Temp 98.9 F 07/22/24 14:36 Pulse 99 07/22/24 14:36 Resp 18 07/22/24 14:36 BP 123/67 07/22/24 14:36 Pulse Ox 100 07/22/24 13:57 O2 Del Method Room Air 07/22/24 13:57 BMI result Body Mass Index 25.6 General: AOx3, no acute distress Resp: CTA bilaterally CVS: S1, S2, RRR GI: +BS, NT, no distention Skin: Warm, dry Neuro: Cranial nerves II-XII grossly intact bilaterally. Motor grossly intact bilaterally Extremities: No edema Psych: Appropriate affect Results Labs 07/22/24 12:28 07/22/24 10:51 Labs: Laboratory Results - last 24 hr 07/22/24 07/22/24 07/22/24 10:51 11:27 13:04 MCV 88.9 MCH 32.4 MCHC 36.4 H RDW 13.2 Plt Count 187 D MPV 11.1 Immature Gran % (Auto) 1.1 H Neut % (Auto) 60.7 Lymph % (Auto) 24.1 [place] % (Auto) 10.4 Eos % (Auto) 3.3 Baso % (Auto) 0.4 Lymph # (Auto) 3.3 [place] # (Auto) 1.4 H Eos # (Auto) 0.5 H Baso # (Auto) 0.1 Abs Immat Gran (auto) 0.15 H Absolute Neuts (auto) 8.3 Absolute Nucleated RBC 0.000 Nucleated RBC % (auto) 0.0 Anion Gap 9 L Estim Creat Clear Calc 120.5 Estimated GFR > 60 Random Glucose 106 Calcium 8.5 D Magnesium 1.5 L Iron 21 L TIBC 253 % Saturation 8 L Unsat Iron Binding 232 Total Bilirubin 0.2 Direct Bilirubin < 0.2 AST 22 ALT 13 Alkaline Phosphatase 45 Lactate Dehydrogenase 136 Total Protein 5.6 L Albumin 3.3 L Lipase 23 Urine Color Urine Appearance Urine pH Ur Specific [place] Urine Protein Urine Glucose (UA) Urine Ketones Urine Blood Urine Nitrite Ur Leukocyte Esterase Urine RBC Urine WBC Ur Squamous Epith Cells Urine Bacteria Hyaline Casts Stool Occult Blood Influenza Type A (PCR) NEGATIVE Influenza Type B (PCR) NEGATIVE RSV RNA Qual (PCR) NEGATIVE SARS-CoV-2 RNA (RT-PCR) NEGATIVE Blood Type A Negative Antibody Screen NEGATIVE ORI, Polyspecific NEGATIVE Positive ORI Work-up TNP Crossmatch See Detail 07/22/24 07/22/24 13:21 13:59 MCV MCH MCHC RDW Plt Count MPV Immature Gran % (Auto) Neut % (Auto) Lymph % (Auto) [place] % (Auto) Eos % (Auto) Baso % (Auto) Lymph # (Auto) [place] # (Auto) Eos # (Auto) Baso # (Auto) Abs Immat Gran (auto) Absolute Neuts (auto) Absolute Nucleated RBC Nucleated RBC % (auto) Anion Gap Estim Creat Clear Calc Estimated GFR Random Glucose Calcium Magnesium Iron TIBC % Saturation Unsat Iron Binding Total Bilirubin Direct Bilirubin AST ALT Alkaline Phosphatase Lactate Dehydrogenase Total Protein Albumin Lipase Urine Color Yellow Urine Appearance Cloudy Urine pH 5.5 Ur Specific [place] >= 1.030 H Urine Protein 30 (1+) H Urine Glucose (UA) Negative Urine Ketones Trace Urine Blood Negative Urine Nitrite Negative Ur Leukocyte Esterase Small (1+) H Urine RBC 0-2 Urine WBC 21-50 H Ur Squamous Epith Cells 0-2 Urine Bacteria None Seen Hyaline Casts 0-2 Stool Occult Blood POSITIVE Influenza Type A (PCR) Influenza Type B (PCR) RSV RNA Qual (PCR) SARS-CoV-2 RNA (RT-PCR) Blood Type Antibody Screen ORI, Polyspecific Positive ORI Work-up Crossmatch Assessment and Plan (1) Acute lower gastrointestinal bleeding: Status: Acute (2) Acute blood loss anemia: Status: Acute Plan Pt is a 24-year-old male with no reported significant PMH not on home medications who presents to the ED with?bloody diarrhea x3 days. Pt will be admitted to the hospital for treatment and further evaluation of acute blood loss anemia likely secondary to LGIB of unclear etiology. Symptomatic acute blood loss anemia Likely in the setting of acute LGIB Reports 30-40+ episodes of hematochezia 3 days ago; No significant N/V or abd pain Reports eating suspicious breadsticks a few hours prior to symptom onset Transfused 2 units PRBCs in the ED Protonix IV bid GI consult, EGD and colonoscopy scheduled for tomorrow Clear liquid diet now, NPO past midnight, bowel prep Check GI panel, C-Diff Follow H&H Hypomagnesemia, mild Magnesium 1.5 at time of presentation In the setting of above Will give Mag sulfate 2 g IV Trend labs Abnormal UA UA positive for small amount of leukocyte esterase, wbc's 20-50, no bacteria Patient asymptomatic No indication for antibiotics at this time Follow urine cultures, treat as appropriate Full Code Attending:?Dr. Rivera DVT Prophylaxis: Pt ambulatory Pt will require a hospitalization of at least two nights for treatment and further evaluation of?symptomatic acute blood loss anemia likely secondary to LGIB of unclear etiology. Pt has received 2 units PRBCs and will require close monitoring of H&H to evaluate for continued bleeding and need for transfusion, as well as specialist consult and likely scoping tomorrow morning. Quality Stroke Does the patient have a stroke diagnosis?: No VTE Prior VTE?: No VTE Risk Level:: Medical - low VTE Device Contraindication: Treatment Not Indicated VTE Drug Contraindication: Treatment Not Indicated
--- NOTE | 2024-07-22 16:06 | PM.GICN ---
History of Present Illness Data of Consult Service Date: 07/22/24 Requesting physician: Bert Cho Primary Care Provider: None Physician HPI Reason for consult: acute bloody diarrhea, GI bleeding 24 year old previously healthy male seen at [facility] on 07/22/24 with?bloody diarrhea x3 days. Pt reported he ordered some bread sticks from [employer] on 07/18 at 10 pm . When they arrived pt found them to be cold and undercooked, almost raw and ate them after cooking them in the oven for 10 minutes. A few hours later pt was awoken at 02:00 am 07/19 with diarrhea - initially brown in color, and subsequently became red with both bright red and dark red blood. Patient reports was in the bathroom all day Sunday with 30-40+ episodes of bloody diarrhea. he notes one episode of non-bloody emesis at around 06:00 on Sunday morning. No additional N/V. Diarrhea and bloody stools resolved on 07/20, though stool has been soft and less formed than normal. Pt reports having 3-4 bowel movements on 07/20 and 07/21 and last bowel movement was yesterday evening. Pt complains of HAs, lightheadedness, weakmess, subjective fevers. He states he did not present earlier since he thought he had food poisoning that was now resolved and came today at the urging of his mother and girlfriend. Denies shortness a breath, DAVIDSON. No chest pain/pressure, palpitations. Currently only complaint is a headache. In the ED pt with low-grade fever of 99.6, tachycardia up to 115, and hypertensive up to 158/79. Labs were significant for leukocytosis 13.7, H&H 6.7/18.4 with repeat 6.4/17.9, magnesium 1.5, iron 21, and iron 8% saturation. Stool positive for occult blood. UA positive leukocyte esterase and wbc's 21 through 50, negative for bacteria. Pt tested negative for flu, RSV, and COVID. 07/22/24 CT ANGIO SHOWED: No evidence of active gastrointestinal hemorrhage at the time of the scan. Review of Systems Review of Systems: Yes all other systems are reviewed and are negative PMFSH Past Medical History Medical History No known health problems Social History Social History Alcohol intake: current Alcohol intake frequency: a few times a month Smoked in Last 30 Days: No Use of substances other than those prescribed or required for medical reasons: No Advance Directives: No Advance Directives Information Provided: Yes Do you have a plan to hurt others: No Plan Meds Allergies Allergy/AdvReac Type Severity Reaction Status Date / Time No Known Allergies Allergy Verified 07/22/24 10:43 [No Known Allergies*] Home Medications ?Medication ?Instructions ?Recorded ?Confirmed ?Last Taken ?Type No Known Home Meds 07/22/24 07/22/24 Unknown History Physical Exam Vital Signs: Vital Signs: Last Vital Signs Temp 98.9 F 07/22/24 14:36 Pulse 99 07/22/24 14:36 Resp 18 07/22/24 14:36 BP 123/67 07/22/24 14:36 Pulse Ox 100 07/22/24 13:57 O2 Del Method Room Air 07/22/24 13:57 BMI result Body Mass Index 25.6 Const: General: no acute distress and other (appears pale) Nutritional Appearance: average body habitus Orientation/consciousness: patient oriented x3 HEENT: Head: Yes normal to inspection Ears: hearing grossly normal bilaterally Eyes: Sclerae: sclerae normal Pupils: Equal, round and reactive pupils present Neck: Neck: Yes normal visual inspection Chest: Chest palpation & inspection: normal inspection of the chest Resp: Effort & Inspection: normal respiratory effort Auscultation: clear to auscultation bilaterally Cardio: Palpation: normal PMI Rate: regular rate Rhythm: regular rhythm Heart sounds: S1 normal heart sound present, S2 normal heart sound present and no murmurs GI: Palpation (GI): Soft to palpation, nontender and No hepatosplenomegaly present Auscultation: normal bowel sounds Rectal Exam - Male: Yes deferred Skin: General skin exam: no rashes or lesions noted Neuro: General: patient oriented x3, gait normal and moves all extremities Cranial nerves: Yes Equal, round and reactive pupils present Psych: Appearance: grossly normal Mental Status: mental status grossly normal Results Labs 07/22/24 12:28 07/22/24 10:51 Labs: Short CBC 07/22/24 07/22/24 Range/Units 10:51 12:28 WBC 13.7 H (4.8-10.8) X10*3/uL Hgb 6.7 L* D 6.4 L* (14.0-18.0) g/dl Hct 18.4 L* D 17.9 L* (42.0-52.0) % Plt Count 187 D (160-400) X10*3/uL BMP 07/22/24 10:51 Sodium 137 Potassium 3.6 Chloride 106 Carbon Dioxide 26 BUN 10 Creatinine 1.15 Calcium 8.5 D Liver Function 07/22/24 Range/Units 10:51 Total Bilirubin 0.2 (0.0-1.0) mg/dL Direct Bilirubin < 0.2 (0.0-0.5) mg/dL AST 22 (5-37) U/L ALT 13 (0-40) U/L Alkaline Phosphatase 45 (39-117) U/L Albumin 3.3 L (3.5-5.0) g/dL Urine 07/22/24 Range/Units 13:21 Urine Color Yellow Urine Appearance Cloudy Urine pH 5.5 (5.0-9.0) Ur Specific [place] >= 1.030 H (1.005-1.025) Urine Protein 30 (1+) H (Neg-Trace) mg/dL Urine Glucose (UA) Negative (Negative) mg/dL Assessment and Plan (1) Acute lower gastrointestinal bleeding: Status: Acute (2) Acute blood loss anemia: Status: Acute Plan 24 year old previously healthy male seen at [facility] on 07/22/24 with?bloody diarrhea x3 days. Pt complains of HAs, lightheadedness, weakmess, subjective fevers. In the ED pt with low-grade fever of 99.6, tachycardia up to 115, and hypertensive up to 158/79. Labs were significant for leukocytosis 13.7, H&H 6.7/18.4 with repeat 6.4/17.9, magnesium 1.5, iron 21, and iron 8% saturation. Stool positive for occult blood. Severe anemia after an episode of food poisoning associated with bloody diarrhea - possibly due to infectious colitis versus upper or lower GI source. RECOMMENDATIONS: 1. Agree with transfusion of 2 U of PRBC and follow CBC daily. 2 IV PPI twice daily 3. Pt advised further evaluation of severe anemia with upper endoscopy and colonoscopy. Pt expressed reluctance to staying in the hospital overnight and is willing to think this over EGD and Colon tentatively scheduled on 07/23/24 at 2:30 pm. Order placed for GoLYTELY prep. Procedures Date of Service Date of Service: 07/22/24
--- NOTE | 2024-07-22 16:34 | PHA.MEDREC ---
Pharmacy Consult ? Medication Reconciliation Pharmacy has completed the medication reconciliation.
--- NOTE | 2024-07-22 16:35 | PHA.MEDREC ---
Addendum entered by Jose Cruz Yañez RPh 07/22/24 16:48: med rec reviewed Original Note: Pharmacy Consult ? Medication Reconciliation Pharmacy has completed the medication reconciliation. Patient states he is not on any home medications.
--- NOTE | 2024-07-22 16:37 | PC.NURSE ---
ED provider requested the rate of the blood to be increased, this nurse increased the transfusion rate as the pt is tolerating well. GI doctor is in room speaking with patient. Additionally, patient has been offered clear liquids as ordered and patient has refused stating I just want to go home patients mother who is at bedside has stated he is very picky with food.
[2024-07-22] MEDS: Magnesium Sulfate/H2O 2 GM/50 ML PIGGYBACK IV (17:02)
[2024-07-22] MEDS: Pantoprazole Sodium 40 MG/10 ML VIAL IVPUSH (17:18)
--- NOTE | 2024-07-22 17:29 | PC.NURSE ---
patient a&ox3, vss, magnesium hanging per order, 1st unit of RBC has completed. This nurse discussed bowel prep- at this time patient is refusing the bowel prep and stated he wants to see what his repeat labs are before beginning it. He understands that this will need to be completed for the procedure. Will notify provider and obtain 2nd unit of blood.
--- NOTE | 2024-07-22 17:39 | PC.NURSE ---
Giulia Juárez was notified via tiger text about pt current refusal of bowel prep.
--- NOTE | 2024-07-22 21:00 | PC.NURSE ---
LFA IV infiltrate. Pt denies any pain at the insertion site. IV removed. sterile dressing applied.
[2024-07-22 23:31] LABS: Hematocrit 25.3 % (42.0-52.0); Hemoglobin 8.9 g/dl (14.0-18.0)
[2024-07-23] MEDS: 0.9 % Sodium Chloride Flush 3 ML SYRINGE IVFLUSH (00:07)
[2024-07-23 02:27] VITALS: BMI 25.6
[2024-07-23 04:00] VITALS: BP 154/58; PULSE 91; RESP 12; TEMP 36.4; O2SAT 98
[2024-07-23 05:27] LABS: Hematocrit 25.5 % (42.0-52.0); Mean Corpuscular HGB Conc 35.3 g/dl (31.0-36.0); Mean Corpuscular Hemoglobin 30.8 pg (27.0-33.0); Mean Corpuscular Volume 87.3 fL (80.0-98.0); Mean Platelet Volume 11.2 fL (9.4-12.4); Platelet Count 186 X10*3/uL (160-400); Red Blood Count 2.92 X10*6/uL (4.60-5.80); Red Cell Distribution Width 13.8 % (11.0-16.0); White Blood Count 10.7 X10*3/uL (4.8-10.8)
[2024-07-23 05:51] LABS: Anion Gap 13 (12-20); Blood Urea Nitrogen 8 mg/dL (9-16); Calcium 8.2 mg/dL (8.4-10.2); Carbon Dioxide 23 mmol/L (22-29); Chloride 107 mmol/L (96-108); Creatinine Clr Calc Pharmacy 155.7; Estimated Glomerular Filt Rate > 60; Glucose Random 90 mg/dL (60-115); Magnesium 2.3 mg/dL (1.6-2.6); Potassium 3.6 mmol/L (3.3-5.1); Sodium 139 mmol/L (135-145)
[2024-07-23] MEDS: Pantoprazole Sodium 40 MG/10 ML VIAL IVPUSH (05:59)
[2024-07-23 07:13] VITALS: BP 105/57; PULSE 96; RESP 18; TEMP 36.5; O2SAT 100
[2024-07-23 07:30] VITALS: BP 105/57; PULSE 96; RESP 18; TEMP 36.5
--- NOTE | 2024-07-23 10:17 | MHC.CM.PN ---
Male 24 DX Anemia, GIB. He is independent with all functional mobility. He lives with his cousin. He declined the offer to document a HCP. GI consult, Dr Shaikh has scheduled an upper and lower scope today 2:30pm. The patient has refused the prep for the procedure. Patient has received a blood transfusion 2 units PRC ordered. Per MD rounds patient may leave without having the procedure. CM will follow.
[2024-07-23 11:05] VITALS: BP 101/55; PULSE 88; RESP 18; TEMP 36.5; O2SAT 100
[2024-07-23 13:42] LABS: CDiff Gene PCR POSITIVE (Negative)
[2024-07-23 14:11] LABS: Hematocrit 28.6 % (42.0-52.0)
[2024-07-23 14:41] LABS: CDiff Toxin Positive (Negative)
[2024-07-23 14:42] LABS: CDIFF Internal ctrl Dots and bkg OK (V)
--- NOTE | 2024-07-23 15:04 | PM.DS ---
DS: Providers Provider Date of Service: 07/23/24 Date of admission: 07/22/24 16:33 Date of discharge: 07/23/24 Primary care physician: None Physician Consults: 07/22/24 16:51 Consult to Gastroenterology Routine Consulting Provider: Stephan Polk Reason for consultation: Acute blood loss anemia from LGIB Attending physician on discharge: Rodolfo Rivera Discharging clinician: Rodolfo Rivera DS: Diagnosis Discharge Diagnosis (1) Acute lower gastrointestinal bleeding: Status: Acute (2) Acute blood loss anemia: Status: Acute DS: Summary Hospital Course Hospital Course: HPI: 24-year-old male with no reported significant PMH not on home medications who presents to the ED with?bloody diarrhea x3 days. Pt reports was in his normal state of health on Sunday evening when he ordered some bread sticks from [employer] at 22:00. When they arrived pt found them to be cold and undercooked, almost raw. Put then in the oven for 10 minutes and them ate them. A few hours later pt was awoken at 02:00 with diarrhea. Bowel movements were at 1st brown in color, but soon became red with both bright red and dark red blood. Patient reports was in the bathroom all day Sunday with 30-40+ episodes of bloody diarrhea. One episode of non-bloody vomiting at around 06:00 on Sunday morning. No additional N/V. Denies abdominal pain. Diarrhea and bloody stools stopped by Sunday, though stool has been soft and less formed than normal. Has been having 3-4 bowel movements on Sunday and Sunday with last bowel movement was yesterday evening. Pt has been experiencing lightheadedness, weakmess, subjective fevers, and headache. Did not present earlier since he thought he had food poisoning that was now resolved. Presents today at the urging of his mother and girlfriend. Denies shortness a breath, DAVIDSON. No chest pain/pressure, palpitations. Denies NSAID use. Currently only complaint is a headache. In the ED pt with low-grade fever of 99.6, tachycardia up to 115, and hypertensive up to 158/79. Labs were significant for leukocytosis 13.7, H&H 6.7/18.4 with repeat 6.4/17.9, magnesium 1.5, iron 21, and iron 8% saturation. Stool positive for occult blood. UA positive leukocyte esterase and wbc's 21 through 50, negative for bacteria. Tested negative for flu, RSV, and COVID. CT GI bleeding study negative for active gastrointestinal hemorrhage. In the ED patient was transfused 2 units PRBCs. Pt will be admitted to the hospital for treatment and further evaluation of acute blood loss anemia likely secondary to LGIB of unclear etiology. Hospital course:Patient was admitted for bloody diarrhea-he had multiple episode of blood /diarrhea: Patient was having lightheadedness, came to the hospital found to have anemia hemoglobin of 6.7 patient received 2 units of PRBC, h/h monitered closley , started ppi,stool studies sent. hemoglobin is stable between 9-10 range. Patient currently defers GI workup -In addition patient has stool sample came positive for C diff: Started on p.o. vanco 125 mg p.o. q.i.d. for 10 days. plan: complete p.o. vanco 125 mg p.o. q.i.d. for 10 days. Monitor CBC, if new bleeding or fever or diarrhea patient is to go to nearest emergency room. Above management discussed with the patient detail length he understand and in agreement with the plan. Above management discussed with the patient in detail length she understand and in agreement with the above plan, time spent 40 minutes and 50% time spent on counseling. Time Attestation Total time managing care of this patient today: 40 mintues. Discharge Coordination Time (in mins): 40 min Quality: Safe Use of Opioids Does Pt have an Active Cancer Diagnosis on the Problem List?: No Quality: Stroke Does the patient have a stroke diagnosis?: No Physical Exam Vital Signs: Vital Signs: Last Vital Signs Temp 97.7 F 07/23/24 11:05 Pulse 88 07/23/24 11:05 Resp 18 07/23/24 11:05 BP 101/55 L 07/23/24 11:05 Pulse Ox 100 07/23/24 11:05 O2 Del Method Room Air 07/23/24 11:05 BMI result Body Mass Index 25.6 General: AOx3, no acute distress Resp: CTA bilaterally CVS: S1, S2, RRR GI: +BS, NT, no distention Skin: Warm, dry Neuro: Cranial nerves II-XII grossly intact bilaterally. Motor grossly intact bilaterally Extremities: No edema Psych: Appropriate affect. DS: Data Data Completed and Pending Labs on day of discharge: Laboratory Results - last 24 hr 07/22/24 07/22/24 07/22/24 10:51 11:27 23:26 WBC RBC Hgb 8.9 L D Hct 25.3 L D MCV MCH MCHC RDW Plt Count MPV Absolute Nucleated RBC Nucleated RBC % (auto) Smear Path Review SEE NOTE Sodium Potassium Chloride Carbon Dioxide Anion Gap BUN Creatinine Estim Creat Clear Calc Estimated GFR Random Glucose Calcium Magnesium C. difficile Tox B Gene C. difficile Toxin A&B C. difficile Interpret Blood Type A Negative Antibody Screen NEGATIVE ORI, Polyspecific NEGATIVE Positive ORI Work-up TNP Crossmatch See Detail 07/23/24 07/23/24 07/23/24 04:09 12:35 13:48 WBC 10.7 RBC 2.92 L D Hgb 9.0 L 10.0 L Hct 25.5 L 28.6 L MCV 87.3 MCH 30.8 MCHC 35.3 RDW 13.8 Plt Count 186 MPV 11.2 Absolute Nucleated RBC 0.000 Nucleated RBC % (auto) 0.0 Smear Path Review Sodium 139 Potassium 3.6 Chloride 107 Carbon Dioxide 23 Anion Gap 13 BUN 8 L Creatinine 0.89 Estim Creat Clear Calc 155.7 Estimated GFR > 60 Random Glucose 90 Calcium 8.2 L Magnesium 2.3 C. difficile Tox B Gene POSITIVE A* C. difficile Toxin A&B Positive A* C. difficile Interpret SEE NOTE Blood Type Antibody Screen ORI, Polyspecific Positive ORI Work-up Crossmatch Imaging Chest x-ray: Radiologist's impression: ITS Impressions Abdomen/Pelvis CT 07/22/24 13:13 IMPRESSION: No evidence of active gastrointestinal hemorrhage at the time of the scan. Electronically signed by: Rafael Inman MD 07/22/2024 04:00 PM EDT Discharge Plan Discharge Anticipated Discharge Date/Time: 07/23/24 15:00 Patient Disposition: Home, Self-Care Discharge Diagnosis: Gib -? infection related ,cdiff Referrals: Physician,None [Primary Care Provider] - 1 Week Discharge Medications: New vancomycin 125 mg Capsule 125 mg PO Q6H Qty: 39 0RF Discharge Orders: Discharge Order (Routine); Ordered 07/23/24 Ordered By: Rodolfo Rivera Diet: Advance to usual diet Activity on Discharge: As tolerated Stand Alone Forms: Patient Portal Discharge page Print Language: Lebanese Care Plan Goals: Patient was admitted for bloody diarrhea-he had multiple episode of blood /diarrhea: Patient was having lightheadedness, came to the hospital found to have anemia hemoglobin of 6.7 patient received 2 units of PRBC hemoglobin is stable between 9-10 range. Patient currently defers GI workup In addition patient has stool sample came positive for C diff: Started on p.o. vanco 125 mg p.o. q.i.d. for 10 days. Monitor CBC, if new bleeding or fever or diarrhea patient is to go to nearest emergency room. Above management discussed with the patient detail length he understand and in agreement with the plan. Health Concerns: As above. Plan of Treatment: As above. Assessment: As above.
[2024-07-23 15:23] VITALS: BP 150/72; PULSE 94; RESP 18; TEMP 36.4; O2SAT 100
[2024-07-23] MEDS: vancomycin HCL 125 MG CAPSULE PO (15:23)
[2024-07-23 16:05] LABS: Adenovirus F 40/41 Not Detected (Not Detect.); Astrovirus Not Detected (Not Detect.); Campylobacter Not Detected (Not Detect.); Cryptosporidium Not Detected (Not Detect.); Cyclospora cayetanensis Not Detected (Not Detect.); E. coli EAEC Not Detected (Not Detect.); E. coli EPEC Not Detected (Not Detect.); E. coli ETEC Not Detected (Not Detect.); E. coli STEC Not Detected (Not Detect.); Entamoeba histolytica Not Detected (Not Detect.); Giardia lamblia Not Detected (Not Detect.); Norovirus GI/GII Not Detected (Not Detect.); Plesiomonas shigelloides Not Detected (Not Detect.); Rotavirus A Not Detected (Not Detect.); Salmonella Not Detected (Not Detect.); Sapovirus Not Detected (Not Detect.); Shigella sp./EIEC Not Detected (Not Detect.); Vibrio Not Detected (Not Detect.); Vibrio Cholerae Not Detected (Not Detect.); Yersinia enterocolitica Not Detected (Not Detect.)
== END 2024-07-23 15:54 | disposition home or self-care (01) | DRG 372 ==
LOC: HO.ED 16:20 → HO.EDOVER 16:55 → HO.IMC 19:46
PROVIDERS: Physician Assistant; Admitting Provider Student in an Organized Health Care Education/Training Program; Emergency Provider Emergency Medicine Emergency Medical Services; Visit Provider Internal Medicine
DX: A04.72 Enterocolitis due to Clostridium difficile, not specified as recurrent (principal); D62 Acute posthemorrhagic anemia; K92.1 Melena; E83.42 Hypomagnesemia
CPT/HCPCS: 0241U; 36415; 74178; 80048; 80076; 81001; 82272; 83540; 83615; 83690; 83735; 85014; 85018; 85025; 85027; 86850; 86880; 86900; 86901; 86923; 87086; 87324; 87493; 87507; 99285; J2470; J3475; P9016; Q9967

== ENCOUNTER → 2024-07-22 16:33 | Outpatient (BNV) | payer SELFPAY | PROVIDERS: Admitting Provider Student in an Organized Health Care Education/Training Program; Emergency Provider Emergency Medicine Emergency Medical Services; Visit Provider Student in an Organized Health Care Education/Training Program | DX: K92.2 Gastrointestinal hemorrhage, unspecified (principal); D62 Acute posthemorrhagic anemia | CPT/HCPCS: 99223; 99239 ==

== ENCOUNTER → 2024-07-22 16:33 | Outpatient (BNV) | payer OTHER, SELFPAY | PROVIDERS: Admitting Provider Student in an Organized Health Care Education/Training Program; Emergency Provider Emergency Medicine Emergency Medical Services; Visit Provider Internal Medicine Gastroenterology | DX: K92.2 Gastrointestinal hemorrhage, unspecified (principal); D62 Acute posthemorrhagic anemia | CPT/HCPCS: 99499 ==

== ENCOUNTER 2025-05-14 11:15 | Emergency (ER) | payer BC, SELFPAY ==
[2025-05-14 11:17] VITALS: BP 158/95; PULSE 77; RESP 16; TEMP 36.3; O2SAT 100; BMI 24.6
--- NOTE | 2025-05-14 11:18 | ED.GENADULT ---
HPI - General Adult General Chief complaint: General Medical Stated complaint: not feeling well multiple symptons blood work Time Seen by Provider: 05/14/25 11:48 Related Data Previous Rx's ?Medication ?Instructions ?Recorded vancomycin 125 mg capsule 125 mg PO Q6H #39 caps 07/23/24 cetirizine 5 mg tablet 5 mg PO DAILY PRN itching 14 days 05/14/25 #14 tabs polysaccharide iron complex 200 mg 200 mg PO DAILY 30 days #30 caps 05/14/25 iron capsule (EZFE 200) Allergies Allergy/AdvReac Type Severity Reaction Status Date / Time No Known Allergies (No Known Allergy Verified 05/14/25 11:18 Allergies*) [facility] Past Medical History Medical History No known health problems Social History Social History Household Members: Friend(s) Housing: Apartment Unable to assess alcohol history related to: Unknown Alcohol intake: current Alcohol intake frequency: a few times a month Patient Tobacco Use Status: Never used Tobacco Smoked in Last 30 Days: No Second Hand Smoke Exposure: No Use of substances other than those prescribed or required for medical reasons: Unknown Advance Directives: No Advance Directives Information Provided: Yes Do you have a plan to hurt others: No Plan service: Yes Physical Exam ED Vital Signs: Vital Signs - 24 hr 05/14/25 11:17 05/14/25 12:42 Temperature 97.4 F 97.4 F Pulse Rate 77 77 Respiratory Rate 16 16 Blood Pressure 158/95 H 158/95 H Pulse Oximetry 100 100 Oxygen Delivery Method Room Air Room Air BMI result Body Mass Index 24.6 Course Course Course Narrative: This is a rapid medical exam performed by Manny Keys NP: Additional HPI, ROS, PE not included below will be deferred to primary provider. Patient is a 24y/oM presenting with complaint of scalp itching without rash which has since progressed to his arms today. Also felt off while at his mother's house last night, was stuttering. Hx of C. diff in Jun 2024 with associated anemia. Plan: basic labs Medical Decision Making Lab Data 05/14/25 11:29 05/14/25 11:29 Labs: Lab Results 08/21/25 Range/Units 11:29 WBC 7.2 (4.8-10.8) X10*3/uL RBC 5.60 D (4.60-5.80) X10*6/uL Hgb 13.1 L D (14.0-18.0) g/dl Hct 41.3 L D (42.0-52.0) % MCV 73.8 L (80.0-98.0) fL MCH 23.4 L (27.0-33.0) pg MCHC 31.7 (31.0-36.0) g/dl RDW 18.1 H (11.0-16.0) % Plt Count 203 (160-400) X10*3/uL MPV 10.4 (9.4-12.4) fL Immature Gran % (Auto) 0.1 (0.0-0.4) % Neut % (Auto) 53.0 (45-73) % Lymph % (Auto) 33.0 (20-40) % [place] % (Auto) 9.3 (2-11) % Eos % (Auto) 3.5 (0-4) % Baso % (Auto) 1.1 (0-2) % Lymph # (Auto) 2.4 (1.2-4.9) X10*3/uL [place] # (Auto) 0.7 (0.1-1.2) X10*3/uL Eos # (Auto) 0.3 (0.0-0.4) X10*3/uL Baso # (Auto) 0.1 (0.0-0.2) X10*3/uL Abs Immat Gran (auto) 0.01 (0.00-0.03) X10*3/uL Absolute Neuts (auto) 3.8 (2.0-8.3) x10*3/uL Absolute Nucleated RBC 0.000 (0.0-0.012) X10*3/uL Nucleated RBC % (auto) 0.0 (0.0-0.2) /100WBC Sodium 140 (135-145) mmol/L Potassium 3.6 (3.3-5.1) mmol/L Chloride 108 (96-108) mmol/L Carbon Dioxide 25 (22-29) mmol/L Anion Gap 11 L (12-20) BUN 9 (9-16) mg/dL Creatinine 1.17 (0.5-1.4) mg/dL Estim Creat Clear Calc 118.4 Estimated GFR > 60 Random Glucose 102 (60-115) mg/dL Calcium 9.3 D (8.4-10.2) mg/dL Discharge Plan Discharge Clinical Impression: Anemia Qualifiers: Anemia type: iron deficiency Iron deficiency anemia type: unspecified iron deficiency Qualified Code(s): D50.9 - Iron deficiency anemia, unspecified Patient Disposition: Home, Self-Care Instructions: Anemia (ED) Prescriptions: New EZFE 200 200 mg iron capsule 200 mg PO DAILY 30 Days Qty: 30 0RF cetirizine 5 mg tablet 5 mg PO DAILY PRN (Reason: itching) 14 Days Qty: 14 0RF No Action vancomycin 125 mg Capsule 125 mg PO Q6H Qty: 39 0RF Referrals: [facility] [place] [facility] [Provider Group, Internal Medicine] Interventions: ED Discharge Assessment Last Done: 05/14/25 12:42 Discharge Date/Time: 05/14/25 12:43 Print Language: Montenegrin
[2025-05-14 11:33] LABS: MANUAL DIFF FLAG NO
[2025-05-14 11:34] LABS: Hematocrit 41.3 % (42.0-52.0); Hemoglobin 13.1 g/dl (14.0-18.0); Imm Gran Abs Auto 0.01 X10*3/uL (0.00-0.03); Imm Gran Pct Auto 0.1 % (0.0-0.4); Lymphocytes Absolute Auto 2.4 X10*3/uL (1.2-4.9); Mean Corpuscular HGB Conc 31.7 g/dl (31.0-36.0); Mean Corpuscular Hemoglobin 23.4 pg (27.0-33.0); Mean Corpuscular Volume 73.8 fL (80.0-98.0); NRBC Abs Auto 0.000 X10*3/uL (0.0-0.012); NRBC Pct Auto 0.0 /100WBC (0.0-0.2); Platelet Count 203 X10*3/uL (160-400); Red Blood Count 5.60 X10*6/uL (4.60-5.80); White Blood Count 7.2 X10*3/uL (4.8-10.8)
[2025-05-14 11:48] LABS: Anion Gap 11 (12-20); Blood Urea Nitrogen 9 mg/dL (9-16); Calcium 9.3 mg/dL (8.4-10.2); Carbon Dioxide 25 mmol/L (22-29); Chloride 108 mmol/L (96-108); Creatinine Clr Calc Pharmacy 118.4; Estimated Glomerular Filt Rate > 60; Potassium 3.6 mmol/L (3.3-5.1); Sodium 140 mmol/L (135-145)
--- NOTE | 2025-05-14 12:05 | ED_ITS ---
[facility] - General Adult General Chief complaint: General Medical Stated complaint: not feeling well multiple symptons blood work Time Seen by Provider: 05/14/25 11:48 Source: patient Mode of arrival: ambulatory Limitations: no limitations History of Present Illness ED Provider: Dr. Sanabria [facility] narrative: 24-year-old male history of iron-deficiency anemia, C diff presents to ER today for evaluation of itching in his body underneath the skin and scalp itching. Patient has stated he wants to get his blood level checked out as well. He does not have a primary care doctor. Patient stated he was admitted to the hospital here for anemia requiring transfusion. He was found to be iron deficient. He has not had any lab work since then. He had a brief moment of stuttering. He states he was looking online and is worried that he may have cancer. Therefore he presents to the ER for evaluation No abdominal pain, no bloody bowel movement, no lesion in his scalp no rash on his arms. He states the itchiness is improving we will time. Related Data Previous Rx's ?Medication ?Instructions ?Recorded vancomycin 125 mg capsule 125 mg PO Q6H #39 caps 07/23 cetirizine 5 mg tablet 5 mg PO DAILY PRN itching 14 days 05/14/25 #14 tabs polysaccharide iron complex 200 mg 200 mg PO DAILY 30 days #30 caps 05/14/25 iron capsule (EZFE 200) Allergies Allergy/AdvReac Type Severity Reaction Status Date / Time No Known Allergies (No Known Allergy Verified 05/14/25 11:18 Allergies*) Review of Systems 2 Review of Systems: Pertinent review of systems as mentioned in HPI. All other system otherwise negative. [facility] Past Medical History [facility] Narrative: Medical history as mentioned in HPI Medical History No known health problems Social History Social History Household Members: Friend(s) Housing: Apartment Alcohol intake: current Alcohol intake frequency: a few times a month Patient Tobacco Use Status: Never used Tobacco Second Hand Smoke Exposure: No service: Yes Physical Exam ED Exam Exam: General: Pleasant, no distress, interacting appropriately Head: Normacephalic, atraumatic ENT: oral mucosa moist, neck supple, no tracheal deviation Cardiovascular: regular rate, regular rhythm, no murmurs, rubbing, gallops Respiratory: CTAB, no wheeze, rales, rhonchi Neurological: Awake and alert, no facial droop noted Skin: Warm and dry, no rash on scalp or arms. Psychiatric: Appropriate mood and thoughts Vital Signs: Vital Signs - 24 hr 05/14/25 11:17 Temperature 97.4 F Pulse Rate 77 Respiratory Rate 16 Blood Pressure 158/95 H Pulse Oximetry 100 Oxygen Delivery Method Room Air BMI result Body Mass Index 24.6 Medical Decision Making Medical Decision Making [facility] Narrative: This is a 24-year-old male history of iron-deficiency anemia, C diff presented hospital today for evaluation of itchiness and lab work. On review of patient's lab work. Patient's hemoglobin is 13.1. Slight anemia. Previous hemoglobin level review on 07/23/2024 was 10.0. He does have signs of microcytic anemia on today lab work likely secondary to iron deficiency. MCV is 73.8. He has no active sign of bleeding currently. No signs of GI bleed. Chemistries unremarkable. We will plan to give patient a primary care doctor referral. We will also prescribe some iron for patient to take. Encouraged patient to take Benadryl for his itchiness if it does come back. Patient agrees and understands this plan. I did encourage primary care doctor follow up and establishment of care for longitudinal care. Patient appears to be well on my exam. Differential Diagnosis Differential Diagnoses: The differential diagnosis associated with the presentation includes Anemia, psoriasis, fungal infection, PICA Lab Data [facility] Lab Attestation statement: I reviewed the patient's lab results. 05/14/25 11:29 05/14/25 11:29 Labs: Lab Results 05/14/25 Range/Units 11:29 WBC 7.2 (4.8-10.8) X10*3/uL RBC 5.60 D (4.60-5.80) X10*6/uL Hgb 13.1 L D (14.0-18.0) g/dl Hct 41.3 L D (42.0-52.0) % MCV 73.8 L (80.0-98.0) fL MCH 23.4 L (27.0-33.0) pg MCHC 31.7 (31.0-36.0) g/dl RDW 18.1 H (11.0-16.0) % Plt Count 203 (160-400) X10*3/uL MPV 10.4 (9.4-12.4) fL Immature Gran % (Auto) 0.1 (0.0-0.4) % Neut % (Auto) 53.0 (45-73) % Lymph % (Auto) 33.0 (20-40) % [place] % (Auto) 9.3 (2-11) % Eos % (Auto) 3.5 (0-4) % Baso % (Auto) 1.1 (0-2) % Lymph # (Auto) 2.4 (1.2-4.9) X10*3/uL [place] # (Auto) 0.7 (0.1-1.2) X10*3/uL Eos # (Auto) 0.3 (0.0-0.4) X10*3/uL Baso # (Auto) 0.1 (0.0-0.2) X10*3/uL Abs Immat Gran (auto) 0.01 (0.00-0.03) X10*3/uL Absolute Neuts (auto) 3.8 (2.0-8.3) x10*3/uL Absolute Nucleated RBC 0.000 (0.0-0.012) X10*3/uL Nucleated RBC % (auto) 0.0 (0.0-0.2) /100WBC Sodium 140 (135-145) mmol/L Potassium 3.6 (3.3-5.1) mmol/L Chloride 108 (96-108) mmol/L Carbon Dioxide 25 (22-29) mmol/L Anion Gap 11 L (12-20) BUN 9 (9-16) mg/dL Creatinine 1.17 (0.5-1.4) mg/dL Estim Creat Clear Calc 118.4 Estimated GFR > 60 Random Glucose 102 (60-115) mg/dL Calcium 9.3 D (8.4-10.2) mg/dL External Record Review External record reviewed: Inpatient record Discharge Plan Discharge Clinical Impression: Anemia Qualifiers: Anemia type: iron deficiency Iron deficiency anemia type: unspecified iron deficiency Qualified Code(s): D50.9 - Iron deficiency anemia, unspecified Patient Disposition: Home, Self-Care Instructions: Anemia (ED) Prescriptions: New EZFE 200 200 mg iron capsule 200 mg PO DAILY 30 Days Qty: 30 0RF cetirizine 5 mg tablet 5 mg PO DAILY PRN (Reason: itching) 14 Days Qty: 14 0RF No Action vancomycin 125 mg Capsule 125 mg PO Q6H Qty: 39 0RF Referrals: [facility] [place] [facility] [Provider Group, Internal Medicine] Print Language: Yemeni
[2025-05-14 12:42] VITALS: BP 158/95; PULSE 77; RESP 16; TEMP 36.3; O2SAT 100
== END 2025-05-14 12:43 | disposition home or self-care (01) ==
PROVIDERS: Registered Nurse Emergency; Emergency Provider Student in an Organized Health Care Education/Training Program
DX: D50.9 Iron deficiency anemia, unspecified (principal); L29.9 Pruritus, unspecified
CPT/HCPCS: 36415; 80048; 85025; 99283; 99284

== ENCOUNTER 2025-06-16 14:41 | Emergency (ER) | payer BC, SELFPAY ==
[2025-06-16 14:45] VITALS: BP 146/65; PULSE 85; RESP 18; TEMP 36.6; O2SAT 98; BMI 25.0
--- NOTE | 2025-06-16 14:47 | ED_ITS ---
HPI - Skin/Abscess/Foreign Bdy General Chief complaint: Wound/Laceration Stated complaint: Cyst Related Data Previous Rx's ?Medication ?Instructions ?Recorded vancomycin 125 mg capsule 125 mg PO Q6H #39 caps 07/23 cetirizine 5 mg tablet 5 mg PO DAILY PRN itching 14 days 05/14/25 #14 tabs polysaccharide iron complex 200 mg 200 mg PO DAILY 30 days #30 caps 05/14/25 iron capsule (EZFE 200) Allergies Allergy/AdvReac Type Severity Reaction Status Date / Time No Known Allergies (No Known Allergy Verified 06/16/25 14:48 Allergies*) [facility], [facility] Past Medical History Medical History No known health problems Social History Social History Household Members: Friend(s) Housing: Apartment Alcohol intake: current Alcohol intake frequency: a few times a month Patient Tobacco Use Status: Never used Tobacco Second Hand Smoke Exposure: No Advance Directives: No Advance Directives Information Provided: No Do you have a plan to hurt others: No Plan service: Yes Physical Exam Vital Signs: Vital Signs: Last Vital Signs Temp 98 F 06/16/25 14:45 Pulse 85 06/16/25 14:45 Resp 18 06/16/25 14:45 BP 146/65 H 06/16/25 14:45 Pulse Ox 98 06/16/25 14:45 O2 Del Method Room Air 06/16/25 14:45 BMI result Body Mass Index 25.0 Course Course Course Narrative: This is a Rapid Medical Examination (RME) performed by Jr Johnson PA-C in triage. Full HPI, ROS, assessment and treatment plan per primary provider in the Main ED. Hx: 24 yo M here for eval of cyst to left groin area, intermittent x months, now worsening. reports it will occasionally drain blood/pus. reports discomfort to the area. no systemic symptoms. PE/vitals: unable to visualize in triage Plan: further eval in ED bed Reevaluation(s) Reevaluation #1: Patient left the emergency department before myself or any of the other clinicians could review or explain physical exam findings, test results, need or lack there of for additional testing, treatment options, or a treatment plan. Discharge Plan Discharge Clinical Impression: Cyst of skin Patient Disposition: Left W/O Completing Treatment Prescriptions: No Action vancomycin 125 mg Capsule 125 mg PO Q6H Qty: 39 0RF EZFE 200 200 mg iron capsule 200 mg PO DAILY 30 Days Qty: 30 0RF cetirizine 5 mg tablet 5 mg PO DAILY PRN (Reason: itching) 14 Days Qty: 14 0RF Discharge Date/Time: 06/16/25 19:00
--- OUTSIDE RECORDS SUMMARY | 2025-06-16 19:04 | XMS_ITS | Encounter Summary ---
Author Organization [facility] Address [address] [place] [id number] Phone Care Team Providers Care Dyehouse Worker Name Role Phone Sherin Hall MD Primary Care Provider [phone] Encounter Details Date Type Department Care Team (Late st Contact Info) Description 10/25/2016 Documentation [facility] [place] Family Medicine [address] [place] [address] Family Medicine, Physician [address], [place] [id number] Social History Tobacco Use Types Packs/Day Years Used Date Smoking Tobacco: Never Comments:Never smoker Sex and Gender Information Value Date Recorded Sex Assigned at Not on file Legal Sex Male 5:20 PM EDT Gender Identity Not on file Sexual Orientation Not on file documented as of this encounter Plan of Treatment Not on file documented as of this encounter Visit Diagnoses Not on filedocumented in this encounter Care Teams Dyehouse Worker Relationship Specialty Start Date End Date Sherin Hall MD [address] [place] [address] [place] [address] PCP - General 05/04/17 01/18/23 documented as of this encounter
--- OUTSIDE RECORDS SUMMARY | 2025-06-16 19:04 | XMS_ITS | Encounter Summary ---
Author Organization [facility] Address [address] [place] [phone] Phone Care Team Providers Care Craps Dealer Name Role Phone Sherin Hall MD Primary Care Provider [phone] Reason for Visit * Reason Comments Med Refill Encounter Details Date Type Department Care Team (Late st Contact Info) Description 10/24/2017 Refill [facility] [place] [address] [place] [address] Radha Porter MD [address] [place] [address] Acne, unspecified acne type (Primary Dx) Social History Tobacco Use Types Packs/Day Years Used Date Smoking Tobacco: Never Comments:Never smoker Sex and Gender Information Value Date Recorded Sex Assigned at Not on file Legal Sex Male 5:20 PM EDT Gender Identity Not on file Sexual Orientation Not on file documented as of this encounter Miscellaneous Notes * Telephone Encounter - Sherin Hall MD - 11/15/2017 2:56 PM EST This was ordered over a year ago. If needing clindamycin then would recommend eval in office. Benzoyl peroxide is OTC * Telephone Encounter - Ginette Figueredo LPN - 10/25/2017 7:20 AM EST DB PCP PAC: pharm fax refill request clindamycin and benzoyl peroxide. EH documented in this encounter Plan of Treatment Not on file documented as of this encounter Visit Diagnoses Diagnosis Acne, unspecified acne type- Primary documented in this encounter Care Teams Craps Dealer Relationship Specialty Start Date End Date Sherin Hall MD [address] [facility] [place] [address] PCP - General 05/04/17 01/18/23 documented as of this encounter
--- OUTSIDE RECORDS SUMMARY | 2025-06-16 19:04 | XMS_ITS | Encounter Summary ---
Author Organization [facility] Address [address] [place] [address] Phone Care Team Providers Care Calliope Player Name Role Phone Sherin Hall MD Primary Care Provider [phone] Encounter Details Date Type Department Care Team (Late st Contact Info) Description 11/27/2016 Documentation [facility] [place] Family Medicine [address] [place] [address] Family Medicine, Physician [address], [place] [id number] Social History Tobacco Use Types Packs/Day Years [...] on filedocumented in this encounter Care Teams Calliope Player Relationship Specialty Start Date End Date Sherin Hall MD [address] [place] [address] [place] [address] PCP - General 05/04/17 01/18/23 documented as of this encounter
--- OUTSIDE RECORDS SUMMARY | 2025-06-16 19:04 | XMS_ITS | Encounter Summary ---
Author Organization [facility] Address [address] [place] [address] Phone Care Team Providers Care Soft Work Wrapper Layer And Examiner Name Role Phone Sherin Hall MD Primary Care Provider [phone] Encounter Details Date Type Department Care Team (Late st Contact Info) Description 05/10/2017 Conversion Encounter [facility] [place] [address] [place] [address] Social History Tobacco Use Types Packs/Day Years [...] on filedocumented in this encounter Care Teams Soft Work Wrapper Layer And Examiner Relationship Specialty Start Date End Date Sherin Hall MD [address] [place] [address] PCP - General 05/04/17 01/18/23 documented as of this encounter
--- OUTSIDE RECORDS SUMMARY | 2025-06-16 19:04 | XMS_ITS | Clinical Summary ---
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 Unavailable Primary Care Provider Unavailabl e Medications CLINDAMYCIN 1 % gelIndications: Acne vulgaris APPLY BY TOPICAL ROUTE ONCE DAILY 60 g 2 12/20/2017 Active Active Problems No known active problems Immunizations Immunization Administration Dates Next Due DTaP 5 09/01/2003, 1,06/14/2000,02/13,1999 HPV, Quadrivalent 01/23/2013,10/11/2011,08/15/20 10 Hep A, ped/adol 09/13/2015,03/03/2014 Hep B, ped/adol 06/14/2000,02/14/2000,1999 Hib (PRP-T) 01/01/2001, 0,02/14/2000,10/06 IPV 09/01/2003, 1,02/14/2000,10/06 Influenza Split 07/21/2013,07/24/2011,08/15/2010 Influenza, injectable, quadr ivalent, preservative free 08/03/2016 Influenza, injectable, trivalent 06/10/2009 MMR 09/01/2003,01/01/2001 Meningococcal Conj (Menactra) MCV4P 08/03/2016,1 10/15/2009 Pneumococcal Conjugate 04/08/2001,01/01/2001, Tdap 08/15/2010 Varicella 09/13/2011,01/01/2001 Family History Relation Name Status Comments Brother Alive Brother: Alive and well, Asthma Father Alive Father: Alive a nd well Mother Alive Mother: Migrain es, Migraines Other Family history of Cancer - prostate, cervix, ski, Family history of Arthritis Social History Tobacco Use Types Packs/Day Years Used Date Smoking Tobacco: Never Comments:Never smoker Sex and Gender Information Value Date Recorded Sex Assigned at Not on file Legal Sex Male 5:20 PM EDT Gender Identity Not on file Sexual Orientation Not on file Last Filed Vital Signs Vital Sign Reading Time Taken Comments Blood Pressure 122/77 10/23/2016 12:00 AM EST Pulse 85 10/23/2016 12:00 AM EST Temperature 36.4 C (97.6 F) 10/23/2016 12:00 AM EST Respiratory Rate - - Oxygen Saturation - - Inhaled Oxygen Concentration - - Weight 67.1 kg (148 lb) 10/23/2016 12:00 AM EST Height 188 cm (6' 2 ) 10/05/2016 12:00 AM EST Body Mass Index - - Plan of Treatment Health Maintenance Due Date Last Done Comments DTaP,Tdap,and Td Vaccines (7 - Td or Tdap) 08/15/2020 08/15/2010, 09/01/2003, 04/08/2001, Additional history exists Influenza Vaccines (#1) 2025 08/03/20 16, 07/21/2013, 07/24/2011, Additional history exists COVID-19 Vaccine ( season) 2025 Hepatitis B Vaccines Completed 06/14/2000, 02/14/2000, 1999 HIB Vaccines Completed 01/01/2001, 05/26, 02/14/2000, Additional history exists Pneumococcal Vaccine Completed 04/08/2001, 01/01/2001, 06/14/2000 IPV Vaccines Completed 09/01/2003, 03/24, 02/14/2000, Additional history exists MMR Vaccines Completed 09/01/2003, 01/01/2001 Varicella Vaccines Completed 09/13/2011, 01/01/2001 HPV Vaccines Completed 01/23/2013, 09/24, 08/15/2010 Hepatitis A Vaccines Completed 09/13/2015, 03/03/20 14 Meningococcal Vaccine Completed 08/03/2016, 010 Men B Vaccine Aged Out No longer elig ible based on patient's age to complete this topic
--- OUTSIDE RECORDS SUMMARY | 2025-06-16 19:04 | XMS_ITS | Encounter Summary ---
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 Phone Sherin Hall MD Primary Care Provider [phone] Encounter Details Date Type Department Care Team (Late st Contact Info) Description 06/13/2013 Documentation [facility] [address] [place] [address] Family Medicine, Physician [address], [place] [id number] Social History Tobacco Use Types Packs/Day Years Used Date Smoking Tobacco: Never Assessed Sex and Gender Information Value Date Recorded Sex Assigned at Not on file Legal Sex Male 5:20 PM EDT Gender Identity Not on file Sexual Orientation Not on file documented as of this encounter Plan of Treatment Not on file documented as of this encounter Visit Diagnoses Not on filedocumented in this encounter Care Teams Vocational Auto Body Instructor Relationship Specialty Start Date End Date Sherin Hall MD [address] [place] [address] [place] [address] PCP - General 05/04/17 01/18/23 documented as of this encounter
--- OUTSIDE RECORDS SUMMARY | 2025-06-16 19:04 | XMS_ITS | Encounter Summary ---
Author Organization [facility] Address [address] [place] [phone] Phone Care Team Providers Care Hotel Receptionist Name Role Phone Sherin Hall MD Primary Care Provider [phone] Reason for Visit * Reason Onset Date Comments Med Refill Med Refill 05/23/2019 Encounter Details Date Type Department Care Team (Late st Contact Info) Description 05/13/2019 Refill [facility] [address] [place] [address] Sherin Hall MD [address] [place] [address] Acne vulgaris Social History Tobacco Use Types Packs/Day Years Used Date Smoking Tobacco: Never Comments:Never smoker Sex and Gender Information Value Date Recorded Sex Assigned at Not on file Legal Sex Male 5:20 PM EDT Gender Identity Not on file Sexual Orientation Not on file documented as of this encounter Plan of Treatment Not on file documented as of this encounter Visit Diagnoses Diagnosis Acne vulgaris Other acne documented in this encounter Care Teams Hotel Receptionist Relationship Specialty Start Date End Date Sherin Hall MD [address] [place] [address] PCP - General 05/04/17 01/18/23 documented as of this encounter
== END 2025-06-16 19:00 | disposition left against medical advice (07) ==
PROVIDERS: Emergency Provider Emergency Medicine
DX: D23.5 Other benign neoplasm of skin of trunk (principal)
CPT/HCPCS: 99281